=== PATIENT | male | born 1950 | race African-American/Black ===

== ENCOUNTER 2018-12-13 16:20 | Inpatient (IN) | payer BC ==
[~2018-12-13] VITALS: Ht 180.3 cm; Wt 94.8 kg
[2018-12-13] MEDS ORDERED: FAMOTIDINE 20 MG/2 ML VIAL IVP ONE (17:00)
[2018-12-13] MEDS ORDERED: ONDANSETRON PF 4 MG/2 ML VIAL. IV ONE (17:00)
[2018-12-13] MEDS ORDERED: IV NORMAL SALINE 1000ML BAG 1,000 ML IV ONE ×2 (17:00→20:30)
[2018-12-13 18:19] LABS: BASO # 0.1 x10^3/uL (0.0-0.2); BASO % 0 % (0-3); EOS % 0 % (0-3); HEMATOCRIT 42.2 % (39.0-53.0); HEMOGLOBIN 14.5 g/dL (13.0-17.5); LYMPH # 5.2 x10^3/uL (1.0-4.8); LYMPH % 30 % (24-48); MEAN CORPUSCULAR HEMOGLOBIN 30 pg (25-35); MEAN CORPUSCULAR HGB CONC 34 g/dL (31-37); MEAN CORPUSCULAR VOLUME 88 fL (79-100); MONO # 0.4 x10^3/uL (0.0-1.1); MONO % 2 % (0-9); NEUT # 11.4 x10^3/uL (1.8-7.7); NEUT % 67 % (31-73); PLATELET COUNT 152 x10^3/uL (140-400); RED BLOOD COUNT 4.81 x10^6/uL (4.30-5.70); RED CELL DISTRIBUTION WIDTH 13.9 % (11.5-14.5); WHITE BLOOD COUNT 17.1 x10^3/uL (4.0-11.0)
[2018-12-13 18:20] LABS: BILIRUBIN,URINE NEGATIVE (NEG); CLARITY,URINE CLEAR; COLOR,URINE AMBER; NITRITE,URINE NEGATIVE (NEG); PROTEIN,URINE NEGATIVE (NEG-TRACE)
[2018-12-13 18:26] LABS: PROTHROMBIN TIME PATIENT 14.8 SEC (11.7-14.0)
[2018-12-13 18:27] LABS: BARBITURATES NEG (NEG); BENZODIAZEPINES NEG (NEG); CANNABINOIDS POS (NEG); COCAINE NEG (NEG); METHADONE NEG (NEG); OPIATES NEG (NEG); PHENCYCLIDINE NEG (NEG)
[2018-12-13 18:28] LABS: SQUAMOUS EPITHELIAL CELL,UR OCC /LPF
[2018-12-13 18:29] LABS: BACTERIA,URINE FEW /HPF (0-FEW); WBC,URINE >40 /HPF (0-4)
[2018-12-13 18:31] LABS: CALCIUM 9.1 mg/dL (8.5-10.1); CREATININE 1.1 mg/dL (0.7-1.3); GFR 80.5; POTASSIUM 3.6 mmol/L (3.5-5.1)
[2018-12-13 18:36] LABS: ALBUMIN 3.7 g/dL (3.4-5.0); ALBUMIN/GLOBULIN RATIO 1.1 (1.0-1.7); MAGNESIUM 1.7 mg/dL (1.8-2.4); TOTAL BILIRUBIN 1.7 mg/dL (0.2-1.0)
[2018-12-13 18:38] LABS: AMPHETAMINE/METHAMPHETAMINE NEG (NEG)
[2018-12-13 18:47] LABS: CREATINE KINASE 73 U/L (39-308)
[2018-12-13] MEDS ORDERED: CONTRAST GIVEN. MC PRN (19:00)
[2018-12-13] MEDS ORDERED: IOHEXOL 300 MG/ML 100ML VIAL. IV ONE (19:00)
--- NOTE | 2018-12-13 19:37 | RAD ---
Exam: CT abdomen and pelvis with contrast INDICATION: Abdominal pain TECHNIQUE: Sequential axial images through the abdomen and pelvis obtained following the administration of 75 mL of Omni 300 IV contrast. Sagittal and coronal reformatted images were reconstructed from the axial data and reviewed. Comparisons: None FINDINGS: Heart size is normal. No pericardial effusion. Visualized lung bases are clear. No pleural effusion. Liver, spleen, pancreas and adrenals are unremarkable. Gallbladder is surgically absent. Kidneys demonstrate symmetric enhancement. No perinephric inflammation or hydronephrosis. No renal or ureteral calculi are identified. Bladder is partially distended not well evaluated. Prostate is mildly enlarged with a mildly heterogenous appearance. Diverticulosis is noted predominantly within the sigmoid colon without evidence of acute diverticulitis. Remainder of the large and small bowel are unremarkable. Appendix is normal. No free intra-abdominal air or fluid. Abdominal aorta has a normal course and caliber. Abdominal vasculature is patent. Mildly enlarged right external iliac lymph node is noted. It measures 1.4 cm in short axis. Numerous prominent and mildly enlarged retroperitoneal lymph nodes probably in the left periaortic region are noted. No suspicious osseous lesions or acute fractures. IMPRESSION: 1. Mild heterogenous appearance of the prostate which is mildly enlarged. This can be seen in setting prostatitis. Recommend correlation with PSA. 2. Several retroperitoneal and pelvic lymph nodes as described above which are nonspecific may be reactive to the above-mentioned process. Exposure: One or more of the following in the visualized dose reduction techniques were utilized for this examination: 1. Automated exposure control 2. Adjustment of the MA and/or KV according to patient size 3. Use of iterative of reconstructive technique Electronically signed by: Vianney Garrido MD (12/13/2018 7:34 PM) [facility]
[2018-12-13] MEDS ORDERED: CIPROFLOXACIN 400MG PREMIX 200 ML IV ONE (19:45)
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
[2018-12-13] MEDS ORDERED: MAGNESIUM SULFATE 1GM 100 ML IV ONE (20:15)
[2018-12-13] MEDS ORDERED: MORPHINE SULFATE 10 MG/ML VIAL. IV ONE (20:15)
[2018-12-13] MEDS ORDERED: ZOLPIDEM 5 MG TABLET. PO PRN (20:30)
[2018-12-13] MEDS ORDERED: ONDANSETRON PF 4 MG/2 ML VIAL. IV PRN (20:30)
[2018-12-13 21:10] VITALS: BP 90/52
--- NOTE | 2018-12-13 21:46 | PDOC1 ---
History and Physical Date of Admission Date of Admission DATE: 12/13/18 TIME: 21:40 Identification/Chief Complaint Chief Complaint lower abd pain, severe dysuria, dec stream Source Source: Caregiver, Chart review, Patient History of Present Illness History of Present Illness 68 male, hx of BPH sxs, not on any meds, has not seen MD in a while, fam hx Prostate CA father with mets to bone, HPI: acute onset today of the above CC, unable to drive, brought him in, UTI on UA with heterogenous prostate on imaging seen in prostatitis, Admitted for that, Wants PSA checked, more comfortable now. Admits to dec stream, dysuria, frequency and urgency, no allergies to abx Past Medical History Renal/: Benign prostatic enlarg. Past Surgical History Past Surgical History: No pertinent history Family History Family History: Cancer, Other (prostate ca- father) Social History Smoke: No ALCOHOL: none Drugs: None Current Problem List Problem List Problems Medical Problems: (1) Acute prostatitis Status: Acute Current Medications Current Medications Current Medications Famotidine (Pepcid Vial) 20 mg 1X ONCE IVP Last administered on 12/13/18at 17:32; Start 12/13/18 at 17:00; Stop 12/13/18 at 17:28; Status DC Ondansetron HCl (Zofran) 4 mg 1X ONCE IV Last administered on 12/13/18at 17:32; Start 12/13/18 at 17:00; Stop 12/13/18 at 17:28; Status DC Sodium Chloride 1,000 ml @ 1,000 mls/hr 1X ONCE IV Last administered on 12/13/18at 17:32; Start 12/13/18 at 17:00; Stop 12/13/18 at 17:59; Status DC Iohexol (Omnipaque 300 Mg/ml) 75 ml 1X ONCE IV Last administered on 12/13/18at 19:05; Start 12/13/18 at 19:00; Stop 12/13/18 at 19:01; Status DC Info (CONTRAST GIVEN -- Rx MONITORING) 1 each PRN DAILY PRN MC SEE COMMENTS; Start 12/13/18 at 19:00; Stop 12/15/18 at 18:59 Ciprofloxacin/ Dextrose 200 ml @ 200 mls/hr 1X ONCE IV Last administered on 12/13/18at 20:02; Start 12/13/18 at 19:45; Stop 12/13/18 at 20:44; Status DC Morphine Sulfate (Morphine Sulfate) 5 mg 1X ONCE IV Last administered on 12/13/18at 20:16; Start 12/13/18 at 20:15; Stop 12/13/18 at 20:16; Status DC Ciprofloxacin/ Dextrose 200 ml @ 200 mls/hr Q12HR IV ; Start 12/14/18 at 09:00 Magnesium Sulfate/ Dextrose 100 ml @ 100 mls/hr 1X ONCE IV ; Start 12/13/18 at 20:15; Stop 12/13/18 at 21:14; Status DC Sodium Chloride 1,000 ml @ 100 mls/hr Q10H IV ; Start 12/13/18 at 20:15 Zolpidem Tartrate (Ambien) 5 mg PRN QHS PRN PO INSOMNIA; Start 12/13/18 at 20:30 Ondansetron HCl (Zofran) 4 mg PRN Q8HRS PRN IV NAUSEA/VOMITING; Start 12/13/18 at 20:30; Stop 12/14/18 at 20:29 Morphine Sulfate (Morphine Sulfate) 4 mg PRN Q2HR PRN IV PAIN; Start 12/13/18 at 20:30; Stop 12/14/18 at 20:29 Acetaminophen (Tylenol) 650 mg PRN Q4HRS PRN PO FEVER; Start 12/13/18 at 20:30; Stop 12/14/18 at 20:29 Sodium Chloride 1,000 ml @ 125 mls/hr 1X ONCE IV ; Start 12/13/18 at 20:30; Stop 12/14/18 at 04:29 Allergies Allergies: Coded Allergies: No Known Drug Allergies (Unverified , 12/13/18) ROS Review of System as per hpi, had emesis, severe abd pain, no fevers Physical Exam General: No acute distress HEENT: PERRLA Lungs: Clear to auscultation, Normal air movement Heart: S1S2, RRR, no thrills, no rubs, no gallops, no murmurs Cardiovascular: S1, S2 Abdomen: Normal bowel sounds, Soft, No tenderness, No hepatosplenomegaly, No masses Male Genitals Exam: normal genitalia, normal prostate Rectal Exam: not examined Extremities: No clubbing, No cyanosis, No edema, Normal pulses, No tenderness/swelling Skin: No rashes, No breakdown, No significant lesion Neuro: Normal gait, Normal speech, Strength at 5/5 X4 ext, Normal tone, Sensation intact, Cranial nerves 3-12 NL, Reflexes 2+ Psych/Mental Status: Mental status NL, Mood NL Vitals Vitals Vital Signs Date Time Temp Pulse Resp B/P (MAP) Pulse Ox O2 Delivery O2 Flow Rate FiO2 12/13/18 20:53 19 94 Room Air 12/13/18 20:41 82 154/63 (93) 12/13/18 16:45 99.4 99.4 Labs Labs Laboratory Tests Test 12/13/18 17:20 White Blood Count 17.1 x10^3/uL (4.0-11.0) Red Blood Count 4.81 x10^6/uL (4.30-5.70) Hemoglobin 14.5 g/dL (13.0-17.5) Hematocrit 42.2 % (39.0-53.0) Mean Corpuscular Volume 88 fL (79-100) Mean Corpuscular Hemoglobin 30 pg (25-35) Mean Corpuscular Hemoglobin Concent 34 g/dL (31-37) Red Cell Distribution Width 13.9 % (11.5-14.5) Platelet Count 152 x10^3/uL (140-400) Neutrophils (%) (Auto) 67 % (31-73) Lymphocytes (%) (Auto) 30 % (24-48) Monocytes (%) (Auto) 2 % (0-9) Eosinophils (%) (Auto) 0 % (0-3) Basophils (%) (Auto) 0 % (0-3) Neutrophils # (Auto) 11.4 x10^3/uL (1.8-7.7) Lymphocytes # (Auto) 5.2 x10^3/uL (1.0-4.8) Monocytes # (Auto) 0.4 x10^3/uL (0.0-1.1) Eosinophils # (Auto) 0.0 x10^3/uL (0.0-0.7) Basophils # (Auto) 0.1 x10^3/uL (0.0-0.2) Prothrombin Time 14.8 SEC (11.7-14.0) Prothromb Time International Ratio 1.2 (0.8-1.1) Urine Collection Type Unknown Urine Color [place] Urine Clarity Clear Urine pH 8.0 Urine Specific [place] 1.020 Urine Protein Negative mg/dL (NEG-TRACE) Urine Glucose (UA) Negative mg/dL (NEG) Urine Ketones (Stick) Trace mg/dL (NEG) Urine Blood Small (NEG) Urine Nitrite Negative (NEG) Urine Bilirubin Negative (NEG) Urine Urobilinogen Dipstick 1.0 mg/dL (0.2 mg/dL) Urine Leukocyte Esterase Large (NEG) Urine RBC 3-5 /HPF (0-2) Urine WBC >40 /HPF (0-4) Urine Squamous Epithelial Cells Occ /LPF Urine Bacteria Few /HPF (0-FEW) Urine Mucus Mod /LPF Sodium Level 139 mmol/L (136-145) Potassium Level 3.6 mmol/L (3.5-5.1) Chloride Level 105 mmol/L (98-107) Carbon Dioxide Level 24 mmol/L (21-32) Anion Gap 10 (6-14) Blood Urea Nitrogen 13 mg/dL (8-26) Creatinine 1.1 mg/dL (0.7-1.3) Estimated GFR (Cockcroft-Gault) 80.5 BUN/Creatinine Ratio 12 (6-20) Glucose Level 107 mg/dL (70-99) Calcium Level 9.1 mg/dL (8.5-10.1) Magnesium Level 1.7 mg/dL (1.8-2.4) Total Bilirubin 1.7 mg/dL (0.2-1.0) Aspartate Amino Transf (AST/SGOT) 13 U/L (15-37) Alanine Aminotransferase (ALT/SGPT) 25 U/L (16-63) Alkaline Phosphatase 79 U/L (46-116) Creatine Kinase 73 U/L (39-308) Creatine Kinase MB (Mass) < 0.5 ng/mL (0.0-3.6) Creatine Kinase MB Relative Index % (0-4) Troponin I Quantitative < 0.017 ng/mL (0.000-0.055) FL-Jbu-[id number]-Type Natriuretic Peptide 485 pg/mL (0-124) Total Protein 7.0 g/dL (6.4-8.2) Albumin 3.7 g/dL (3.4-5.0) Albumin/Globulin Ratio 1.1 (1.0-1.7) Lipase 57 U/L (73-393) Thyroid Stimulating Hormone (TSH) 0.172 uIU/mL (0.358-3.74) Urine Opiates Screen Neg (NEG) Urine Methadone Screen Neg (NEG) Urine Barbiturates Neg (NEG) Urine Phencyclidine Screen Neg (NEG) Urine Amphetamine/Methamphetamine Neg (NEG) Urine Benzodiazepines Screen Neg (NEG) Urine Cocaine Screen Neg (NEG) Urine Cannabinoids Screen Pos (NEG) Urine Ethyl Alcohol Neg (NEG) Laboratory Tests Test 12/13/18 17:20 White Blood Count 17.1 x10^3/uL (4.0-11.0) Red Blood Count 4.81 x10^6/uL (4.30-5.70) Hemoglobin 14.5 g/dL (13.0-17.5) Hematocrit 42.2 % (39.0-53.0) Mean Corpuscular Volume 88 fL (79-100) Mean Corpuscular Hemoglobin 30 pg (25-35) Mean Corpuscular Hemoglobin Concent 34 g/dL (31-37) Red Cell Distribution Width 13.9 % (11.5-14.5) Platelet Count 152 x10^3/uL (140-400) Neutrophils (%) (Auto) 67 % (31-73) Lymphocytes (%) (Auto) 30 % (24-48) Monocytes (%) (Auto) 2 % (0-9) Eosinophils (%) (Auto) 0 % (0-3) Basophils (%) (Auto) 0 % (0-3) Neutrophils # (Auto) 11.4 x10^3/uL (1.8-7.7) Lymphocytes # (Auto) 5.2 x10^3/uL (1.0-4.8) Monocytes # (Auto) 0.4 x10^3/uL (0.0-1.1) Eosinophils # (Auto) 0.0 x10^3/uL (0.0-0.7) Basophils # (Auto) 0.1 x10^3/uL (0.0-0.2) Prothrombin Time 14.8 SEC (11.7-14.0) Prothromb Time International Ratio 1.2 (0.8-1.1) Urine Collection Type Unknown Urine Color [place] Urine Clarity Clear Urine pH 8.0 Urine Specific [place] 1.020 Urine Protein Negative mg/dL (NEG-TRACE) Urine Glucose (UA) Negative mg/dL (NEG) Urine Ketones (Stick) Trace mg/dL (NEG) Urine Blood Small (NEG) Urine Nitrite Negative (NEG) Urine Bilirubin Negative (NEG) Urine Urobilinogen Dipstick 1.0 mg/dL (0.2 mg/dL) Urine Leukocyte Esterase Large (NEG) Urine RBC 3-5 /HPF (0-2) Urine WBC >40 /HPF (0-4) Urine Squamous Epithelial Cells Occ /LPF Urine Bacteria Few /HPF (0-FEW) Urine Mucus Mod /LPF Sodium Level 139 mmol/L (136-145) Potassium Level 3.6 mmol/L (3.5-5.1) Chloride Level 105 mmol/L (98-107) Carbon Dioxide Level 24 mmol/L (21-32) Anion Gap 10 (6-14) Blood Urea Nitrogen 13 mg/dL (8-26) Creatinine 1.1 mg/dL (0.7-1.3) Estimated GFR (Cockcroft-Gault) 80.5 BUN/Creatinine Ratio 12 (6-20) Glucose Level 107 mg/dL (70-99) Calcium Level 9.1 mg/dL (8.5-10.1) Magnesium Level 1.7 mg/dL (1.8-2.4) Total Bilirubin 1.7 mg/dL (0.2-1.0) Aspartate Amino Transf (AST/SGOT) 13 U/L (15-37) Alanine Aminotransferase (ALT/SGPT) 25 U/L (16-63) Alkaline Phosphatase 79 U/L (46-116) Creatine Kinase 73 U/L (39-308) Creatine Kinase MB (Mass) < 0.5 ng/mL (0.0-3.6) Creatine Kinase MB Relative Index % (0-4) Troponin I Quantitative < 0.017 ng/mL (0.000-0.055) WS-Jtc-[id number]-Type Natriuretic Peptide 485 pg/mL (0-124) Total Protein 7.0 g/dL (6.4-8.2) Albumin 3.7 g/dL (3.4-5.0) Albumin/Globulin Ratio 1.1 (1.0-1.7) Lipase 57 U/L (73-393) Thyroid Stimulating Hormone (TSH) 0.172 uIU/mL (0.358-3.74) Urine Opiates Screen Neg (NEG) Urine Methadone Screen Neg (NEG) Urine Barbiturates Neg (NEG) Urine Phencyclidine Screen Neg (NEG) Urine Amphetamine/Methamphetamine Neg (NEG) Urine Benzodiazepines Screen Neg (NEG) Urine Cocaine Screen Neg (NEG) Urine Cannabinoids Screen Pos (NEG) Urine Ethyl Alcohol Neg (NEG) VTE Prophylaxis Ordered VTE Prophylaxis Devices: Yes VTE Pharmacological Prophylaxi: Yes Assessment/Plan Assessment/Plan prostatitis UTI BPH, symptomatic FAm hx prostate CA with mets to bone - father Hypomagnesemia LEukocytosis PLAN: 2 mN, med surg floor CIpro IV Urology FLomax IVF for sIRS Full code ok to eat NO home meds to reconcile I did check for psa - though unsure how reliable that will be with active prostatitis Replace mag and recheck tmr Montior leukocytosis, SEEn in room, dw KEMAL DAVIS Y Dec 13, 2018 21:46
[2018-12-13 23:00] VITALS: BP 103/47
[2018-12-13] MEDS: TAMSULOSIN 0.4 MG CAP.ER.24H. PO SCH (23:30)
[2018-12-13] MEDS: ACETAMINOPHEN 325 MG TABLET. PO PRN (23:30)
[2018-12-13] MEDS: IV NORMAL SALINE 1000ML BAG 1,000 ML IV SCH (23:39)
[2018-12-13] MEDS: MORPHINE SULFATE 4 MG/ML VIAL. IV PRN (23:39)
[2018-12-14 03:00] VITALS: BP 99/54
[2018-12-14 03:47] LABS: BASO # 0.1 x10^3/uL (0.0-0.2); BASO % 0 % (0-3); EOS % 0 % (0-3); HEMATOCRIT 39.8 % (39.0-53.0); HEMOGLOBIN 13.6 g/dL (13.0-17.5); LYMPH # 4.6 x10^3/uL (1.0-4.8); LYMPH % 24 % (24-48); MEAN CORPUSCULAR HEMOGLOBIN 30 pg (25-35); MEAN CORPUSCULAR HGB CONC 34 g/dL (31-37); MEAN CORPUSCULAR VOLUME 88 fL (79-100); MONO # 0.5 x10^3/uL (0.0-1.1); MONO % 3 % (0-9); NEUT % 73 % (31-73); PLATELET COUNT 126 x10^3/uL (140-400); RED BLOOD COUNT 4.53 x10^6/uL (4.30-5.70); RED CELL DISTRIBUTION WIDTH 13.9 % (11.5-14.5); WHITE BLOOD COUNT 19.2 x10^3/uL (4.0-11.0)
[2018-12-14 04:07] LABS: CALCIUM 8.3 mg/dL (8.5-10.1); CREATININE 1.3 mg/dL (0.7-1.3); GFR 66.4; MAGNESIUM 1.9 mg/dL (1.8-2.4); POTASSIUM 3.7 mmol/L (3.5-5.1)
[2018-12-14] MEDS: MORPHINE SULFATE 4 MG/ML VIAL. IV PRN ×2 (05:08→08:12)
[2018-12-14] MEDS ORDERED: IV NORMAL SALINE 1000ML BAG 1,000 ML IV ONE (06:00)
[2018-12-14] MEDS: IV NORMAL SALINE 1000ML BAG 1,000 ML IV SCH ×3 (06:10→18:06)
--- NOTE | 2018-12-14 06:11 | NUR ---
Pt triggered a Positive Sepsis on admission assessment with elevated temp, WBCs in blood, abx use and WBC in urine. Contacted CHILD CARE ASSISTANT, ordered STAT Lactic and Blood Cultures. Contacted DR with Lactic results of 1.1. Recieved orders to administer 1 liter bolus of NS. Non-administered 0615 bag of scheduled NS till the bolus is complete. Will Continue to monitor.
[2018-12-14 07:00] VITALS: BP 102/40
[2018-12-14] MEDS: ACETAMINOPHEN 325 MG TABLET. PO PRN (08:04)
[2018-12-14] MEDS ORDERED: CIPROFLOXACIN 400MG PREMIX 200 ML IV SCH (09:00)
[2018-12-14] MEDS ORDERED: PIP/TAZO PER PHARMACY MC PRN (09:45)
--- NOTE | 2018-12-14 09:59 | PDOC ---
PROGRESS NOTES Chief Complaint Chief Complaint sepsis prostatitis UTI BPH, symptomatic Hypomagnesemia nausea and vomiting History of Present Illness History of Present Illness Dc cipro, change to zosyn Urology consult flomax NO home meds to reconcile Vitals Vitals Vital Signs Date Time Temp Pulse Resp B/P (MAP) Pulse Ox O2 Delivery O2 Flow Rate FiO2 12/14/18 08:15 Room Air 12/14/18 07:00 101.5 83 20 102/40 (60) 95 101.5 Physical Exam General: Alert, Oriented X3, Cooperative, mild distress Heart: Regular rate, No murmurs Lungs: Clear Abdomen: Normal bowel sounds, Soft, No tenderness, No hepatosplenomegaly, No masses Extremities: No clubbing, No cyanosis, No edema, Normal pulses, No tenderness/swelling Skin: No rashes, No breakdown, No significant lesion Labs LABS Laboratory Tests Test 12/13/18 17:20 12/14/18 03:30 White Blood Count 17.1 x10^3/uL (4.0-11.0) 19.2 x10^3/uL (4.0-11.0) Red Blood Count 4.81 x10^6/uL (4.30-5.70) 4.53 x10^6/uL (4.30-5.70) Hemoglobin 14.5 g/dL (13.0-17.5) 13.6 g/dL (13.0-17.5) Hematocrit 42.2 % (39.0-53.0) 39.8 % (39.0-53.0) Mean Corpuscular Volume 88 fL (79-100) 88 fL (79-100) Mean Corpuscular Hemoglobin 30 pg (25-35) 30 pg (25-35) Mean Corpuscular Hemoglobin Concent 34 g/dL (31-37) 34 g/dL (31-37) Red Cell Distribution Width 13.9 % (11.5-14.5) 13.9 % (11.5-14.5) Platelet Count 152 x10^3/uL (140-400) 126 x10^3/uL (140-400) Neutrophils (%) (Auto) 67 % (31-73) 73 % (31-73) Lymphocytes (%) (Auto) 30 % (24-48) 24 % (24-48) Monocytes (%) (Auto) 2 % (0-9) 3 % (0-9) Eosinophils (%) (Auto) 0 % (0-3) 0 % (0-3) Basophils (%) (Auto) 0 % (0-3) 0 % (0-3) Neutrophils # (Auto) 11.4 x10^3/uL (1.8-7.7) 14.0 x10^3/uL (1.8-7.7) Lymphocytes # (Auto) 5.2 x10^3/uL (1.0-4.8) 4.6 x10^3/uL (1.0-4.8) Monocytes # (Auto) 0.4 x10^3/uL (0.0-1.1) 0.5 x10^3/uL (0.0-1.1) Eosinophils # (Auto) 0.0 x10^3/uL (0.0-0.7) 0.0 x10^3/uL (0.0-0.7) Basophils # (Auto) 0.1 x10^3/uL (0.0-0.2) 0.1 x10^3/uL (0.0-0.2) Prothrombin Time 14.8 SEC (11.7-14.0) Prothromb Time International Ratio 1.2 (0.8-1.1) Urine Collection Type Unknown Urine Color [place] Urine Clarity Clear Urine pH 8.0 Urine Specific [place] 1.020 Urine Protein Negative mg/dL (NEG-TRACE) Urine Glucose (UA) Negative mg/dL (NEG) Urine Ketones (Stick) Trace mg/dL (NEG) Urine Blood Small (NEG) Urine Nitrite Negative (NEG) Urine Bilirubin Negative (NEG) Urine Urobilinogen Dipstick 1.0 mg/dL (0.2 mg/dL) Urine Leukocyte Esterase Large (NEG) Urine RBC 3-5 /HPF (0-2) Urine WBC >40 /HPF (0-4) Urine Squamous Epithelial Cells Occ /LPF Urine Bacteria Few /HPF (0-FEW) Urine Mucus Mod /LPF Sodium Level 139 mmol/L (136-145) 138 mmol/L (136-145) Potassium Level 3.6 mmol/L (3.5-5.1) 3.7 mmol/L (3.5-5.1) Chloride Level 105 mmol/L (98-107) 105 mmol/L (98-107) Carbon Dioxide Level 24 mmol/L (21-32) 24 mmol/L (21-32) Anion Gap 10 (6-14) 9 (6-14) Blood Urea Nitrogen 13 mg/dL (8-26) 16 mg/dL (8-26) Creatinine 1.1 mg/dL (0.7-1.3) 1.3 mg/dL (0.7-1.3) Estimated GFR (Cockcroft-Gault) 80.5 66.4 BUN/Creatinine Ratio 12 (6-20) Glucose Level 107 mg/dL (70-99) 150 mg/dL (70-99) Calcium Level 9.1 mg/dL (8.5-10.1) 8.3 mg/dL (8.5-10.1) Magnesium Level 1.7 mg/dL (1.8-2.4) 1.9 mg/dL (1.8-2.4) Total Bilirubin 1.7 mg/dL (0.2-1.0) Aspartate Amino Transf (AST/SGOT) 13 U/L (15-37) Alanine Aminotransferase (ALT/SGPT) 25 U/L (16-63) Alkaline Phosphatase 79 U/L (46-116) Creatine Kinase 73 U/L (39-308) Creatine Kinase MB (Mass) < 0.5 ng/mL (0.0-3.6) Creatine Kinase MB Relative Index % (0-4) Troponin I Quantitative < 0.017 ng/mL (0.000-0.055) HO-Ooa-M-Type Natriuretic Peptide 485 pg/mL (0-124) Total Protein 7.0 g/dL (6.4-8.2) Albumin 3.7 g/dL (3.4-5.0) Albumin/Globulin Ratio 1.1 (1.0-1.7) Lipase 57 U/L (73-393) Prostate Specific Antigen 7.01 ng/mL (0.00-4.00) Thyroid Stimulating Hormone (TSH) 0.172 uIU/mL (0.358-3.74) Urine Opiates Screen Neg (NEG) Urine Methadone Screen Neg (NEG) Urine Barbiturates Neg (NEG) Urine Phencyclidine Screen Neg (NEG) Urine Amphetamine/Methamphetamine Neg (NEG) Urine Benzodiazepines Screen Neg (NEG) Urine Cocaine Screen Neg (NEG) Urine Cannabinoids Screen Pos (NEG) Urine Ethyl Alcohol Neg (NEG) Lactic Acid Level 1.1 mmol/L (0.4-2.0) Assessment and Plan Assessmemt and Plan Problems Medical Problems: (1) Acute prostatitis Status: Acute Comment Review of Relevant I have reviewed the following items dionisio (where applicable) has been applied. Labs Laboratory Tests Test 12/13/18 17:20 12/14/18 03:30 White Blood Count 17.1 x10^3/uL (4.0-11.0) 19.2 x10^3/uL (4.0-11.0) Red Blood Count 4.81 x10^6/uL (4.30-5.70) 4.53 x10^6/uL (4.30-5.70) Hemoglobin 14.5 g/dL (13.0-17.5) 13.6 g/dL (13.0-17.5) Hematocrit 42.2 % (39.0-53.0) 39.8 % (39.0-53.0) Mean Corpuscular Volume 88 fL (79-100) 88 fL (79-100) Mean Corpuscular Hemoglobin 30 pg (25-35) 30 pg (25-35) Mean Corpuscular Hemoglobin Concent 34 g/dL (31-37) 34 g/dL (31-37) Red Cell Distribution Width 13.9 % (11.5-14.5) 13.9 % (11.5-14.5) Platelet Count 152 x10^3/uL (140-400) 126 x10^3/uL (140-400) Neutrophils (%) (Auto) 67 % (31-73) 73 % (31-73) Lymphocytes (%) (Auto) 30 % (24-48) 24 % (24-48) Monocytes (%) (Auto) 2 % (0-9) 3 % (0-9) Eosinophils (%) (Auto) 0 % (0-3) 0 % (0-3) Basophils (%) (Auto) 0 % (0-3) 0 % (0-3) Neutrophils # (Auto) 11.4 x10^3/uL (1.8-7.7) 14.0 x10^3/uL (1.8-7.7) Lymphocytes # (Auto) 5.2 x10^3/uL (1.0-4.8) 4.6 x10^3/uL (1.0-4.8) Monocytes # (Auto) 0.4 x10^3/uL (0.0-1.1) 0.5 x10^3/uL (0.0-1.1) Eosinophils # (Auto) 0.0 x10^3/uL (0.0-0.7) 0.0 x10^3/uL (0.0-0.7) Basophils # (Auto) 0.1 x10^3/uL (0.0-0.2) 0.1 x10^3/uL (0.0-0.2) Prothrombin Time 14.8 SEC (11.7-14.0) Prothromb Time International Ratio 1.2 (0.8-1.1) Urine Collection Type Unknown Urine Color [place] Urine Clarity Clear Urine pH 8.0 Urine Specific [place] 1.020 Urine Protein Negative mg/dL (NEG-TRACE) Urine Glucose (UA) Negative mg/dL (NEG) Urine Ketones (Stick) Trace mg/dL (NEG) Urine Blood Small (NEG) Urine Nitrite Negative (NEG) Urine Bilirubin Negative (NEG) Urine Urobilinogen Dipstick 1.0 mg/dL (0.2 mg/dL) Urine Leukocyte Esterase Large (NEG) Urine RBC 3-5 /HPF (0-2) Urine WBC >40 /HPF (0-4) Urine Squamous Epithelial Cells Occ /LPF Urine Bacteria Few /HPF (0-FEW) Urine Mucus Mod /LPF Sodium Level 139 mmol/L (136-145) 138 mmol/L (136-145) Potassium Level 3.6 mmol/L (3.5-5.1) 3.7 mmol/L (3.5-5.1) Chloride Level 105 mmol/L (98-107) 105 mmol/L (98-107) Carbon Dioxide Level 24 mmol/L (21-32) 24 mmol/L (21-32) Anion Gap 10 (6-14) 9 (6-14) Blood Urea Nitrogen 13 mg/dL (8-26) 16 mg/dL (8-26) Creatinine 1.1 mg/dL (0.7-1.3) 1.3 mg/dL (0.7-1.3) Estimated GFR (Cockcroft-Gault) 80.5 66.4 BUN/Creatinine Ratio 12 (6-20) Glucose Level 107 mg/dL (70-99) 150 mg/dL (70-99) Calcium Level 9.1 mg/dL (8.5-10.1) 8.3 mg/dL (8.5-10.1) Magnesium Level 1.7 mg/dL (1.8-2.4) 1.9 mg/dL (1.8-2.4) Total Bilirubin 1.7 mg/dL (0.2-1.0) Aspartate Amino Transf (AST/SGOT) 13 U/L (15-37) Alanine Aminotransferase (ALT/SGPT) 25 U/L (16-63) Alkaline Phosphatase 79 U/L (46-116) Creatine Kinase 73 U/L (39-308) Creatine Kinase MB (Mass) < 0.5 ng/mL (0.0-3.6) Creatine Kinase MB Relative Index % (0-4) Troponin I Quantitative < 0.017 ng/mL (0.000-0.055) IZ-Cyg-A-Type Natriuretic Peptide 485 pg/mL (0-124) Total Protein 7.0 g/dL (6.4-8.2) Albumin 3.7 g/dL (3.4-5.0) Albumin/Globulin Ratio 1.1 (1.0-1.7) Lipase 57 U/L (73-393) Prostate Specific Antigen 7.01 ng/mL (0.00-4.00) Thyroid Stimulating Hormone (TSH) 0.172 uIU/mL (0.358-3.74) Urine Opiates Screen Neg (NEG) Urine Methadone Screen Neg (NEG) Urine Barbiturates Neg (NEG) Urine Phencyclidine Screen Neg (NEG) Urine Amphetamine/Methamphetamine Neg (NEG) Urine Benzodiazepines Screen Neg (NEG) Urine Cocaine Screen Neg (NEG) Urine Cannabinoids Screen Pos (NEG) Urine Ethyl Alcohol Neg (NEG) Lactic Acid Level 1.1 mmol/L (0.4-2.0) Laboratory Tests Test 12/13/18 17:20 12/14/18 03:30 White Blood Count 17.1 x10^3/uL (4.0-11.0) 19.2 x10^3/uL (4.0-11.0) Red Blood Count 4.81 x10^6/uL (4.30-5.70) 4.53 x10^6/uL (4.30-5.70) Hemoglobin 14.5 g/dL (13.0-17.5) 13.6 g/dL (13.0-17.5) Hematocrit 42.2 % (39.0-53.0) 39.8 % (39.0-53.0) Mean Corpuscular Volume 88 fL (79-100) 88 fL (79-100) Mean Corpuscular Hemoglobin 30 pg (25-35) 30 pg (25-35) Mean Corpuscular Hemoglobin Concent 34 g/dL (31-37) 34 g/dL (31-37) Red Cell Distribution Width 13.9 % (11.5-14.5) 13.9 % (11.5-14.5) Platelet Count 152 x10^3/uL (140-400) 126 x10^3/uL (140-400) Neutrophils (%) (Auto) 67 % (31-73) 73 % (31-73) Lymphocytes (%) (Auto) 30 % (24-48) 24 % (24-48) Monocytes (%) (Auto) 2 % (0-9) 3 % (0-9) Eosinophils (%) (Auto) 0 % (0-3) 0 % (0-3) Basophils (%) (Auto) 0 % (0-3) 0 % (0-3) Neutrophils # (Auto) 11.4 x10^3/uL (1.8-7.7) 14.0 x10^3/uL (1.8-7.7) Lymphocytes # (Auto) 5.2 x10^3/uL (1.0-4.8) 4.6 x10^3/uL (1.0-4.8) Monocytes # (Auto) 0.4 x10^3/uL (0.0-1.1) 0.5 x10^3/uL (0.0-1.1) Eosinophils # (Auto) 0.0 x10^3/uL (0.0-0.7) 0.0 x10^3/uL (0.0-0.7) Basophils # (Auto) 0.1 x10^3/uL (0.0-0.2) 0.1 x10^3/uL (0.0-0.2) Prothrombin Time 14.8 SEC (11.7-14.0) Prothromb Time International Ratio 1.2 (0.8-1.1) Urine Collection Type Unknown Urine Color [place] Urine Clarity Clear Urine pH 8.0 Urine Specific [place] 1.020 Urine Protein Negative mg/dL (NEG-TRACE) Urine Glucose (UA) Negative mg/dL (NEG) Urine Ketones (Stick) Trace mg/dL (NEG) Urine Blood Small (NEG) Urine Nitrite Negative (NEG) Urine Bilirubin Negative (NEG) Urine Urobilinogen Dipstick 1.0 mg/dL (0.2 mg/dL) Urine Leukocyte Esterase Large (NEG) Urine RBC 3-5 /HPF (0-2) Urine WBC >40 /HPF (0-4) Urine Squamous Epithelial Cells Occ /LPF Urine Bacteria Few /HPF (0-FEW) Urine Mucus Mod /LPF Sodium Level 139 mmol/L (136-145) 138 mmol/L (136-145) Potassium Level 3.6 mmol/L (3.5-5.1) 3.7 mmol/L (3.5-5.1) Chloride Level 105 mmol/L (98-107) 105 mmol/L (98-107) Carbon Dioxide Level 24 mmol/L (21-32) 24 mmol/L (21-32) Anion Gap 10 (6-14) 9 (6-14) Blood Urea Nitrogen 13 mg/dL (8-26) 16 mg/dL (8-26) Creatinine 1.1 mg/dL (0.7-1.3) 1.3 mg/dL (0.7-1.3) Estimated GFR (Cockcroft-Gault) 80.5 66.4 BUN/Creatinine Ratio 12 (6-20) Glucose Level 107 mg/dL (70-99) 150 mg/dL (70-99) Calcium Level 9.1 mg/dL (8.5-10.1) 8.3 mg/dL (8.5-10.1) Magnesium Level 1.7 mg/dL (1.8-2.4) 1.9 mg/dL (1.8-2.4) Total Bilirubin 1.7 mg/dL (0.2-1.0) Aspartate Amino Transf (AST/SGOT) 13 U/L (15-37) Alanine Aminotransferase (ALT/SGPT) 25 U/L (16-63) Alkaline Phosphatase 79 U/L (46-116) Creatine Kinase 73 U/L (39-308) Creatine Kinase MB (Mass) < 0.5 ng/mL (0.0-3.6) Creatine Kinase MB Relative Index % (0-4) Troponin I Quantitative < 0.017 ng/mL (0.000-0.055) XK-Zqe-E-Type Natriuretic Peptide 485 pg/mL (0-124) Total Protein 7.0 g/dL (6.4-8.2) Albumin 3.7 g/dL (3.4-5.0) Albumin/Globulin Ratio 1.1 (1.0-1.7) Lipase 57 U/L (73-393) Prostate Specific Antigen 7.01 ng/mL (0.00-4.00) Thyroid Stimulating Hormone (TSH) 0.172 uIU/mL (0.358-3.74) Urine Opiates Screen Neg (NEG) Urine Methadone Screen Neg (NEG) Urine Barbiturates Neg (NEG) Urine Phencyclidine Screen Neg (NEG) Urine Amphetamine/Methamphetamine Neg (NEG) Urine Benzodiazepines Screen Neg (NEG) Urine Cocaine Screen Neg (NEG) Urine Cannabinoids Screen Pos (NEG) Urine Ethyl Alcohol Neg (NEG) Lactic Acid Level 1.1 mmol/L (0.4-2.0) Medications Current Medications Famotidine (Pepcid Vial) 20 mg 1X ONCE IVP Last administered on 12/13/18at 17:32; Start 12/13/18 at 17:00; Stop 12/13/18 at 17:28; Status DC Ondansetron HCl (Zofran) 4 mg 1X ONCE IV Last administered on 12/13/18at 17:32; Start 12/13/18 at 17:00; Stop 12/13/18 at 17:28; Status DC Sodium Chloride 1,000 ml @ 1,000 mls/hr 1X ONCE IV Last administered on 12/13/18at 17:32; Start 12/13/18 at 17:00; Stop 12/13/18 at 17:59; Status DC Iohexol (Omnipaque 300 Mg/ml) 75 ml 1X ONCE IV Last administered on 12/13/18 19:05; Start 12/13/18 at 19:00; Stop 12/13/18 at 19:01; Status DC Info (CONTRAST GIVEN -- Rx MONITORING) 1 each PRN DAILY PRN MC SEE COMMENTS; Start 12/13/18 at 19:00; Stop 12/15/18 at 18:59 Ciprofloxacin/ Dextrose 200 ml @ 200 mls/hr 1X ONCE IV Last administered on 12/13/18 20:02; Start 12/13/18 at 19:45; Stop 12/13/18 at 20:44; Status DC Morphine Sulfate (Morphine Sulfate) 5 mg 1X ONCE IV Last administered on 12/13/18 20:16; Start 12/13/18 at 20:15; Stop 12/13/18 at 20:16; Status DC Ciprofloxacin/ Dextrose 200 ml @ 200 mls/hr Q12HR IV Last administered on 12/14/18 08:05; Start 12/14/18 at 09:00; Stop 12/14/18 at 09:32; Status DC Magnesium Sulfate/ Dextrose 100 ml @ 100 mls/hr 1X ONCE IV Last administered on 12/13/18at 23:40; Start 12/13/18 at 20:15; Stop 12/13/18 at 21:14; Status DC Sodium Chloride 1,000 ml @ 100 mls/hr Q10H IV Last administered on 12/14/18at 07:11; Start 12/13/18 at 20:15 Zolpidem Tartrate (Ambien) 5 mg PRN QHS PRN PO INSOMNIA; Start 12/13/18 at 20:30 Ondansetron HCl (Zofran) 4 mg PRN Q8HRS PRN IV NAUSEA/VOMITING Last administered on 12/14/18at 09:43; Start 12/13/18 at 20:30; Stop 12/14/18 at 20:29 Morphine Sulfate (Morphine Sulfate) 4 mg PRN Q2HR PRN IV PAIN Last administered on 12/14/18 08:15; Start 12/13/18 at 20:30; Stop 12/14/18 at 20:29 Acetaminophen (Tylenol) 650 mg PRN Q4HRS PRN PO FEVER Last administered on 8/17/19at 08:05; Start 12/13/18 at 20:30; Stop 12/14/18 at 20:29 Sodium Chloride 1,000 ml @ 125 mls/hr 1X ONCE IV ; Start 12/13/18 at 20:30; Stop 12/14/18 at 04:29; Status DC Tamsulosin HCl (Flomax) 0.4 mg QHS PO Last administered on 12/13/18at 23:40; Start 12/13/18 at 22:00 Sodium Chloride 1,000 ml @ 0 mls/hr 1X ONCE IV Last administered on 12/14/18at 05:48; Start 12/14/18 at 06:00; Stop 12/14/18 at 07:00; Status DC Piperacillin Sod/ Tazobactam Sod (Zosyn Per Pharmacy) 1 each PRN DAILY PRN MC SEE COMMENTS; Start 12/14/18 at 09:45 Piperacillin Sod/ Tazobactam Sod 3.375 gm/Sodium Chloride 50 ml @ 100 mls/hr Q6HRS IV ; Start 12/14/18 at 12:00 Lactobacillus Rhamnosus (Culturelle) 1 cap BID PO ; Start 12/14/18 at 21:00 Vitals/I & O Vital Sign - Last 24 Hours 12/13/18 12/13/18 12/13/18 12/13/18 16:45 17:18 17:48 18:18 Temp 99.4 99.4 Pulse 72 78 82 78 Resp 16 B/P (MAP) 114/56 (75) 142/63 (89) 143/69 (93) 132/73 (92) Pulse Ox 97 97 91 96 O2 Delivery Room Air Room Air Room Air Room Air 12/13/18 12/13/18 12/13/18 12/13/18 18:48 20:11 20:16 20:41 Pulse 80 78 82 Resp 22 22 B/P (MAP) 146/64 (91) 157/70 (99) 154/63 (93) Pulse Ox 95 97 99 95 O2 Delivery Room Air Room Air Room Air Room Air 12/13/18 12/13/18 12/13/18 12/13/18 20:53 21:10 21:30 23:00 Temp 101.1 101.3 101.1 101.3 Pulse 77 73 Resp 19 18 18 B/P (MAP) 90/52 (65) 103/47 (65) Pulse Ox 94 96 93 O2 Delivery Room Air Room Air Room Air Room Air 12/14/18 12/14/18 12/14/18 12/14/18 00:50 03:00 05:08 05:51 Temp 98.4 98.4 Pulse 63 Resp 18 B/P (MAP) 99/54 (69) Pulse Ox 96 O2 Delivery Room Air Room Air Room Air Room Air 12/14/18 12/14/18 07:00 08:15 Temp 101.5 101.5 Pulse 83 Resp 20 B/P (MAP) 102/40 (60) Pulse Ox 95 O2 Delivery Room Air Room Air Intake and Output 12/13/18 12/13/18 12/14/18 15:00 23:00 07:00 Intake Total 1400 ml Output Total 250 ml Balance 1400 ml -250 ml ISAIAH GARCIA MD Dec 14, 2018 09:59
[2018-12-14 11:00] VITALS: BP 94/54
[2018-12-14] MEDS: PIPERACILLIN/TAZOBACTAM 3.375 GM in IV NORMAL SALINE 50ML 50 ML IV SCH ×3 (12:02→23:52)
[2018-12-14 12:32] LABS: % ATYL 1 % (0-0); % BANDS 8 % (0-9); % LYMPHS 20 % (24-48); % MONOS 2 % (0-10); % SEGS 69 % (35-66); PLT ESTIMATE DECREASED (ADEQUATE)
--- NOTE | 2018-12-14 12:55 | EKG ---
[facility] [address] [place] [id number] Test Date: 2018-12-13 Test Time: 17:33:18 Pat Name: SURJIT RITCHIE Department: Room: Gender: M [employer] Consult[employer]: : 1950 Requested By: BORA HU Order Number: [id number] Reading MD: Measurements Intervals [place] Rate: 60 P: 59 MO: 152 QRS: 70 QRSD: 74 T: 39 QT: 370 QTc: 374 Interpretive Statements SINUS ARRHYTHMIA NO SPECIFIC ECG ABNORMALITIES RI6.01 No previous ECG available for comparison
--- NOTE | 2018-12-14 13:19 | PDOC2 ---
UROLOGY CONSULT Date of Consult Date of Consult DATE: 12/14/18 TIME: 13:13 Reason for Consult Reason for Consult: prostatitis Source Source: Chart review, Patient History of Present Illness Reason for Visit: 68 yo male with 2 days of dysuria,pelvic pain, fevers. Pelvic pain radiates to upper abdomen. UA consistent with infection. CT consistent with acute prostatit is, no prostatic abscess noted. Admitted on 12/13/18. Today he feels better, much less dysuria and feels like he is voiding with less difficulty. No hematuria. No prior prostate infections. Mild BPH symptoms at baseline. PSA 7 on 12/13/18 Past Medical History Renal/: Benign prostatic enlarg. Past Surgical History Past Surgical History: No pertinent history Family History Family History: Cancer, Other (prostate ca- father) Social History No ALCOHOL: none Drugs: None Current Medications Current Medications Current Medications Acetaminophen (Tylenol) 650 mg PRN Q4HRS PRN PO FEVER Last administered on 12/14/18at 08:05; Start 12/13/18 at 20:30; Stop 12/14/18 at 20:29 Ciprofloxacin/ Dextrose 200 ml @ 200 mls/hr 1X ONCE IV Last administered on 12/13/18at 20:02; Start 12/13/18 at 19:45; Stop 12/13/18 at 20:44; Status DC Ciprofloxacin/ Dextrose 200 ml @ 200 mls/hr Q12HR IV Last administered on 12/14/18at 08:05; Start 12/14/18 at 09:00; Stop 12/14/18 at 09:32; Status DC Famotidine (Pepcid Vial) 20 mg 1X ONCE IVP Last administered on 12/13/18at 17:32; Start 12/13/18 at 17:00; Stop 12/13/18 at 17:28; Status DC Info (CONTRAST GIVEN -- Rx MONITORING) 1 each PRN DAILY PRN MC SEE COMMENTS; Start 12/13/18 at 19:00; Stop 12/15/18 at 18:59 Iohexol (Omnipaque 300 Mg/ml) 75 ml 1X ONCE IV Last administered on 12/13/18at 19:05; Start 12/13/18 at 19:00; Stop 12/13/18 at 19:01; Status DC Lactobacillus Rhamnosus (Culturelle) 1 cap BID PO ; Start 12/14/18 at 21:00 Magnesium Sulfate/ Dextrose 100 ml @ 100 mls/hr 1X ONCE IV Last administered on 12/13/18at 23:40; Start 12/13/18 at 20:15; Stop 12/13/18 at 21:14; Status DC Morphine Sulfate (Morphine Sulfate) 4 mg PRN Q2HR PRN IV PAIN Last administered on 12/14/18at 08:15; Start 12/13/18 at 20:30; Stop 12/14/18 at 20:29 Morphine Sulfate (Morphine Sulfate) 5 mg 1X ONCE IV Last administered on 12/13/18at 20:16; Start 12/13/18 at 20:15; Stop 12/13/18 at 20:16; Status DC Ondansetron HCl (Zofran) 4 mg 1X ONCE IV Last administered on 12/13/18at 17:32; Start 12/13/18 at 17:00; Stop 12/13/18 at 17:28; Status DC Ondansetron HCl (Zofran) 4 mg PRN Q8HRS PRN IV NAUSEA/VOMITING Last administered on 12/14/18at 09:43; Start 12/13/18 at 20:30; Stop 12/14/18 at 20:29 Oxycodone/ Acetaminophen (Percocet 5/325) 1 tab PRN Q4HRS PRN PO PAIN; Start 12/14/18 at 10:00 Piperacillin Sod/ Tazobactam Sod (Zosyn Per Pharmacy) 1 each PRN DAILY PRN MC SEE COMMENTS; Start 12/14/18 at 09:45 Piperacillin Sod/ Tazobactam Sod 3.375 gm/Sodium Chloride 50 ml @ 100 mls/hr Q6HRS IV Last administered on 12/14/18at 12:02; Start 12/14/18 at 12:00 Sodium Chloride 1,000 ml @ 0 mls/hr 1X ONCE IV Last administered on 12/14/18at 05:48; Start 12/14/18 at 06:00; Stop 12/14/18 at 07:00; Status DC Sodium Chloride 1,000 ml @ 100 mls/hr Q10H IV Last administered on 12/14/18at 07:11; Start 12/13/18 at 20:15 Sodium Chloride 1,000 ml @ 125 mls/hr 1X ONCE IV ; Start 12/13/18 at 20:30; Stop 12/14/18 at 04:29; Status DC Sodium Chloride 1,000 ml @ 1,000 mls/hr 1X ONCE IV Last administered on 12/13/18at 17:32; Start 12/13/18 at 17:00; Stop 12/13/18 at 17:59; Status DC Tamsulosin HCl (Flomax) 0.4 mg QHS PO Last administered on 12/13/18at 23:40; Start 12/13/18 at 22:00 Zolpidem Tartrate (Ambien) 5 mg PRN QHS PRN PO INSOMNIA; Start 12/13/18 at 20:30 Allergies Allergies: Coded Allergies: No Known Drug Allergies (Unverified , 12/13/18) ROS Review Of Systems: CONSTITUTIONAL: + fever and chills EYES: No recent changes SKIN: No rash or itching CARDIOVASCULAR: No chest pain, syncope, palpitations, or edema RESPIRATORY: No SOB or cough GASTROINTESTINAL: No nausea, vomiting NEUROLOGICAL: No headaches or weakness ENDOCRINE: No cold or heat intolerance GENITOURINARY: as in HPI MUSCULOSKELETAL: No back pain or joint pain LYMPHATICS: No enlarged lymph nodes PSYCHIATRIC: No anxiety or depression Physical Exam Physical Exam: General: Pleasant, no acute distress, well groomed Eyes: conjunctiva anicteric, eyes full range of motion ENT: moist oral mucosa, normal dentition Neck: Trachea midline, no masses Respiratory: unlabored breathing, not using accessory muscles, no crackles or wheezes Cardiovascular: Regular rate and rhythm, no peripheral edema Abdomen: nontender, nondistended, no hepatosplenomegaly, no masses Skin: no rashes or skin lesions on visualized skin Psych: normal mood, affect. Alert and oriented x 3. : prostate 50 grams, tender, no bogginess or fluctuance. Right testicle mildly tender without enlargement or mass. Left testicle normal. No perineal tenderness or swelling. Vitals VITALS Vital Signs Date Time Temp Pulse Resp B/P (MAP) Pulse Ox O2 Delivery O2 Flow Rate FiO2 12/14/18 11:00 98.7 65 18 94/54 (67) 92 Room Air 98.7 Labs Labs Laboratory Tests Test 12/13/18 17:20 12/14/18 03:30 White Blood Count 17.1 x10^3/uL (4.0-11.0) 19.2 x10^3/uL (4.0-11.0) Red Blood Count 4.81 x10^6/uL (4.30-5.70) 4.53 x10^6/uL (4.30-5.70) Hemoglobin 14.5 g/dL (13.0-17.5) 13.6 g/dL (13.0-17.5) Hematocrit 42.2 % (39.0-53.0) 39.8 % (39.0-53.0) Mean Corpuscular Volume 88 fL (79-100) 88 fL (79-100) Mean Corpuscular Hemoglobin 30 pg (25-35) 30 pg (25-35) Mean Corpuscular Hemoglobin Concent 34 g/dL (31-37) 34 g/dL (31-37) Red Cell Distribution Width 13.9 % (11.5-14.5) 13.9 % (11.5-14.5) Platelet Count 152 x10^3/uL (140-400) 126 x10^3/uL (140-400) Neutrophils (%) (Auto) 67 % (31-73) 73 % (31-73) Lymphocytes (%) (Auto) 30 % (24-48) 24 % (24-48) Monocytes (%) (Auto) 2 % (0-9) 3 % (0-9) Eosinophils (%) (Auto) 0 % (0-3) 0 % (0-3) Basophils (%) (Auto) 0 % (0-3) 0 % (0-3) Neutrophils # (Auto) 11.4 x10^3/uL (1.8-7.7) 14.0 x10^3/uL (1.8-7.7) Lymphocytes # (Auto) 5.2 x10^3/uL (1.0-4.8) 4.6 x10^3/uL (1.0-4.8) Monocytes # (Auto) 0.4 x10^3/uL (0.0-1.1) 0.5 x10^3/uL (0.0-1.1) Eosinophils # (Auto) 0.0 x10^3/uL (0.0-0.7) 0.0 x10^3/uL (0.0-0.7) Basophils # (Auto) 0.1 x10^3/uL (0.0-0.2) 0.1 x10^3/uL (0.0-0.2) Prothrombin Time 14.8 SEC (11.7-14.0) Prothromb Time International Ratio 1.2 (0.8-1.1) Urine Collection Type Unknown Urine Color Yuko Urine Clarity Clear Urine pH 8.0 Urine Specific Hersey 1.020 Urine Protein Negative mg/dL (NEG-TRACE) Urine Glucose (UA) Negative mg/dL (NEG) Urine Ketones (Stick) Trace mg/dL (NEG) Urine Blood Small (NEG) Urine Nitrite Negative (NEG) Urine Bilirubin Negative (NEG) Urine Urobilinogen Dipstick 1.0 mg/dL (0.2 mg/dL) Urine Leukocyte Esterase Large (NEG) Urine RBC 3-5 /HPF (0-2) Urine WBC >40 /HPF (0-4) Urine Squamous Epithelial Cells Occ /LPF Urine Bacteria Few /HPF (0-FEW) Urine Mucus Mod /LPF Sodium Level 139 mmol/L (136-145) 138 mmol/L (136-145) Potassium Level 3.6 mmol/L (3.5-5.1) 3.7 mmol/L (3.5-5.1) Chloride Level 105 mmol/L (98-107) 105 mmol/L (98-107) Carbon Dioxide Level 24 mmol/L (21-32) 24 mmol/L (21-32) Anion Gap 10 (6-14) 9 (6-14) Blood Urea Nitrogen 13 mg/dL (8-26) 16 mg/dL (8-26) Creatinine 1.1 mg/dL (0.7-1.3) 1.3 mg/dL (0.7-1.3) Estimated GFR (Cockcroft-Gault) 80.5 66.4 BUN/Creatinine Ratio 12 (6-20) Glucose Level 107 mg/dL (70-99) 150 mg/dL (70-99) Calcium Level 9.1 mg/dL (8.5-10.1) 8.3 mg/dL (8.5-10.1) Magnesium Level 1.7 mg/dL (1.8-2.4) 1.9 mg/dL (1.8-2.4) Total Bilirubin 1.7 mg/dL (0.2-1.0) Aspartate Amino Transf (AST/SGOT) 13 U/L (15-37) Alanine Aminotransferase (ALT/SGPT) 25 U/L (16-63) Alkaline Phosphatase 79 U/L (46-116) Creatine Kinase 73 U/L (39-308) Creatine Kinase MB (Mass) < 0.5 ng/mL (0.0-3.6) Creatine Kinase MB Relative Index % (0-4) Troponin I Quantitative < 0.017 ng/mL (0.000-0.055) XI-Emt-L-Type Natriuretic Peptide 485 pg/mL (0-124) Total Protein 7.0 g/dL (6.4-8.2) Albumin 3.7 g/dL (3.4-5.0) Albumin/Globulin Ratio 1.1 (1.0-1.7) Lipase 57 U/L (73-393) Prostate Specific Antigen 7.01 ng/mL (0.00-4.00) Thyroid Stimulating Hormone (TSH) 0.172 uIU/mL (0.358-3.74) Urine Opiates Screen Neg (NEG) Urine Methadone Screen Neg (NEG) Urine Barbiturates Neg (NEG) Urine Phencyclidine Screen Neg (NEG) Urine Amphetamine/Methamphetamine Neg (NEG) Urine Benzodiazepines Screen Neg (NEG) Urine Cocaine Screen Neg (NEG) Urine Cannabinoids Screen Pos (NEG) Urine Ethyl Alcohol Neg (NEG) Segmented Neutrophils % 69 % (35-66) Band Neutrophils % 8 % (0-9) Lymphocytes % 20 % (24-48) Atypical Lymphocytes % (Manual) 1 % (0-0) Monocytes % 2 % (0-10) Platelet Estimate Decreased (ADEQUATE) Lactic Acid Level 1.1 mmol/L (0.4-2.0) Laboratory Tests Test 12/13/18 17:20 12/14/18 03:30 White Blood Count 17.1 x10^3/uL (4.0-11.0) 19.2 x10^3/uL (4.0-11.0) Red Blood Count 4.81 x10^6/uL (4.30-5.70) 4.53 x10^6/uL (4.30-5.70) Hemoglobin 14.5 g/dL (13.0-17.5) 13.6 g/dL (13.0-17.5) Hematocrit 42.2 % (39.0-53.0) 39.8 % (39.0-53.0) Mean Corpuscular Volume 88 fL (79-100) 88 fL (79-100) Mean Corpuscular Hemoglobin 30 pg (25-35) 30 pg (25-35) Mean Corpuscular Hemoglobin Concent 34 g/dL (31-37) 34 g/dL (31-37) Red Cell Distribution Width 13.9 % (11.5-14.5) 13.9 % (11.5-14.5) Platelet Count 152 x10^3/uL (140-400) 126 x10^3/uL (140-400) Neutrophils (%) (Auto) 67 % (31-73) 73 % (31-73) Lymphocytes (%) (Auto) 30 % (24-48) 24 % (24-48) Monocytes (%) (Auto) 2 % (0-9) 3 % (0-9) Eosinophils (%) (Auto) 0 % (0-3) 0 % (0-3) Basophils (%) (Auto) 0 % (0-3) 0 % (0-3) Neutrophils # (Auto) 11.4 x10^3/uL (1.8-7.7) 14.0 x10^3/uL (1.8-7.7) Lymphocytes # (Auto) 5.2 x10^3/uL (1.0-4.8) 4.6 x10^3/uL (1.0-4.8) Monocytes # (Auto) 0.4 x10^3/uL (0.0-1.1) 0.5 x10^3/uL (0.0-1.1) Eosinophils # (Auto) 0.0 x10^3/uL (0.0-0.7) 0.0 x10^3/uL (0.0-0.7) Basophils # (Auto) 0.1 x10^3/uL (0.0-0.2) 0.1 x10^3/uL (0.0-0.2) Prothrombin Time 14.8 SEC (11.7-14.0) Prothromb Time International Ratio 1.2 (0.8-1.1) Urine Collection Type Unknown Urine Color Yuko Urine Clarity Clear Urine pH 8.0 Urine Specific Hersey 1.020 Urine Protein Negative mg/dL (NEG-TRACE) Urine Glucose (UA) Negative mg/dL (NEG) Urine Ketones (Stick) Trace mg/dL (NEG) Urine Blood Small (NEG) Urine Nitrite Negative (NEG) Urine Bilirubin Negative (NEG) Urine Urobilinogen Dipstick 1.0 mg/dL (0.2 mg/dL) Urine Leukocyte Esterase Large (NEG) Urine RBC 3-5 /HPF (0-2) Urine WBC >40 /HPF (0-4) Urine Squamous Epithelial Cells Occ /LPF Urine Bacteria Few /HPF (0-FEW) Urine Mucus Mod /LPF Sodium Level 139 mmol/L (136-145) 138 mmol/L (136-145) Potassium Level 3.6 mmol/L (3.5-5.1) 3.7 mmol/L (3.5-5.1) Chloride Level 105 mmol/L (98-107) 105 mmol/L (98-107) Carbon Dioxide Level 24 mmol/L (21-32) 24 mmol/L (21-32) Anion Gap 10 (6-14) 9 (6-14) Blood Urea Nitrogen 13 mg/dL (8-26) 16 mg/dL (8-26) Creatinine 1.1 mg/dL (0.7-1.3) 1.3 mg/dL (0.7-1.3) Estimated GFR (Cockcroft-Gault) 80.5 66.4 BUN/Creatinine Ratio 12 (6-20) Glucose Level 107 mg/dL (70-99) 150 mg/dL (70-99) Calcium Level 9.1 mg/dL (8.5-10.1) 8.3 mg/dL (8.5-10.1) Magnesium Level 1.7 mg/dL (1.8-2.4) 1.9 mg/dL (1.8-2.4) Total Bilirubin 1.7 mg/dL (0.2-1.0) Aspartate Amino Transf (AST/SGOT) 13 U/L (15-37) Alanine Aminotransferase (ALT/SGPT) 25 U/L (16-63) Alkaline Phosphatase 79 U/L (46-116) Creatine Kinase 73 U/L (39-308) Creatine Kinase MB (Mass) < 0.5 ng/mL (0.0-3.6) Creatine Kinase MB Relative Index % (0-4) Troponin I Quantitative < 0.017 ng/mL (0.000-0.055) [id number]-Type Natriuretic Peptide 485 pg/mL (0-124) Total Protein 7.0 g/dL (6.4-8.2) Albumin 3.7 g/dL (3.4-5.0) Albumin/Globulin Ratio 1.1 (1.0-1.7) Lipase 57 U/L (73-393) Prostate Specific Antigen 7.01 ng/mL (0.00-4.00) Thyroid Stimulating Hormone (TSH) 0.172 uIU/mL (0.358-3.74) Urine Opiates Screen Neg (NEG) Urine Methadone Screen Neg (NEG) Urine Barbiturates Neg (NEG) Urine Phencyclidine Screen Neg (NEG) Urine Amphetamine/Methamphetamine Neg (NEG) Urine Benzodiazepines Screen Neg (NEG) Urine Cocaine Screen Neg (NEG) Urine Cannabinoids Screen Pos (NEG) Urine Ethyl Alcohol Neg (NEG) Segmented Neutrophils % 69 % (35-66) Band Neutrophils % 8 % (0-9) Lymphocytes % 20 % (24-48) Atypical Lymphocytes % (Manual) 1 % (0-0) Monocytes % 2 % (0-10) Platelet Estimate Decreased (ADEQUATE) Lactic Acid Level 1.1 mmol/L (0.4-2.0) Assessment/Plan Assessment/Plan Acute prostatitis: Agree with current antibiotics. Would give cipro 500 mg PO BID X 6 weeks. Continue flomax. Continue to monitor in hospital until afebrile x 24 hours and WBC improving. Recheck PSA in 6 weeks - unreliable in setting of acute prostatitis / UTI. SARA AMAYA MD Dec 14, 2018 13:19
[2018-12-14] MEDS: oxyCODONE/APAP 5/325 1 TAB TABLET PO PRN ×3 (14:11→22:31)
[2018-12-14 15:00] VITALS: BP 104/56
[2018-12-14 19:00] VITALS: BP 101/50
[2018-12-14] MEDS ORDERED: CALCIUM CARBONATE 500 MG TAB.CHEW PO PRN (19:00)
[2018-12-14] MEDS: PANTOPRAZOLE 40 MG TABLET.DR. PO SCH (19:04)
[2018-12-14] MEDS ORDERED: ONDANSETRON PF 4 MG/2 ML VIAL. IV PRN (19:15)
[2018-12-14] MEDS: LACTOBACILLUS RHAMNOSUS GG 1 CAPSULE. PO SCH (20:39)
[2018-12-14] MEDS: TAMSULOSIN 0.4 MG CAP.ER.24H. PO SCH (20:39)
[2018-12-14 23:00] VITALS: BP 109/59
[2018-12-15 03:00] VITALS: BP 106/51
[2018-12-15] MEDS: oxyCODONE/APAP 5/325 1 TAB TABLET PO PRN ×3 (03:36→20:59)
[2018-12-15] MEDS: IV NORMAL SALINE 1000ML BAG 1,000 ML IV SCH ×2 (03:36→14:29)
[2018-12-15] MEDS: MORPHINE SULFATE 4 MG/ML VIAL. IV PRN ×3 (04:09→21:31)
[2018-12-15] MEDS: PIPERACILLIN/TAZOBACTAM 3.375 GM in IV NORMAL SALINE 50ML 50 ML IV SCH ×4 (05:34→22:37)
[2018-12-15] MEDS ORDERED: ONDANSETRON PF 4 MG/2 ML VIAL. IV PRN (05:45)
[2018-12-15 07:00] VITALS: BP 110/54
[2018-12-15] MEDS: PANTOPRAZOLE 40 MG TABLET.DR. PO SCH (07:55)
[2018-12-15] MEDS: LACTOBACILLUS RHAMNOSUS GG 1 CAPSULE. PO SCH ×3 (09:00→21:00)
[2018-12-15 10:11] LABS: BASO # 0.1 x10^3/uL (0.0-0.2); BASO % 0 % (0-3); EOS # 0.1 x10^3/uL (0.0-0.7); EOS % 1 % (0-3); HEMATOCRIT 35.7 % (39.0-53.0); HEMOGLOBIN 12.3 g/dL (13.0-17.5); LYMPH # 3.1 x10^3/uL (1.0-4.8); LYMPH % 21 % (24-48); MEAN CORPUSCULAR HEMOGLOBIN 31 pg (25-35); MEAN CORPUSCULAR HGB CONC 35 g/dL (31-37); MEAN CORPUSCULAR VOLUME 89 fL (79-100); MONO # 0.4 x10^3/uL (0.0-1.1); MONO % 3 % (0-9); NEUT # 10.9 x10^3/uL (1.8-7.7); NEUT % 75 % (31-73); PLATELET COUNT 98 x10^3/uL (140-400); RED BLOOD COUNT 4.04 x10^6/uL (4.30-5.70); RED CELL DISTRIBUTION WIDTH 14.3 % (11.5-14.5); WHITE BLOOD COUNT 14.6 x10^3/uL (4.0-11.0)
[2018-12-15 10:31] LABS: CALCIUM 8.1 mg/dL (8.5-10.1); CREATININE 1.1 mg/dL (0.7-1.3); GFR 80.5; POTASSIUM 3.4 mmol/L (3.5-5.1)
[2018-12-15 11:00] VITALS: BP 117/52
--- NOTE | 2018-12-15 12:29 | PDOC ---
PROGRESS NOTES Chief Complaint Chief Complaint sepsis prostatitis UTI BPH, symptomatic Hypomagnesemia nausea and vomiting History of Present Illness History of Present Illness no fever zosyn, blood cx neg, urine cx pending very poor Po intake, a lot of pain with urination Urology consult following, appreciate, flomax NO home meds to reconcile Vitals Vitals Vital Signs Date Time Temp Pulse Resp B/P (MAP) Pulse Ox O2 Delivery O2 Flow Rate FiO2 12/15/18 11:11 20 Room Air 12/15/18 11:00 98.6 59 117/52 (73) 98 98.6 Physical Exam General: Alert, Oriented X3, Cooperative, mild distress Heart: Regular rate, No murmurs Lungs: Clear Abdomen: Normal bowel sounds, Soft, No tenderness, No hepatosplenomegaly, No masses Extremities: No clubbing, No cyanosis, No edema, Normal pulses, No tenderness/swelling Skin: No rashes, No breakdown, No significant lesion Labs LABS Laboratory Tests Test 12/15/18 09:55 12/15/18 09:58 White Blood Count 14.6 x10^3/uL (4.0-11.0) Red Blood Count 4.04 x10^6/uL (4.30-5.70) Hemoglobin 12.3 g/dL (13.0-17.5) Hematocrit 35.7 % (39.0-53.0) Mean Corpuscular Volume 89 fL (79-100) Mean Corpuscular Hemoglobin 31 pg (25-35) Mean Corpuscular Hemoglobin Concent 35 g/dL (31-37) Red Cell Distribution Width 14.3 % (11.5-14.5) Platelet Count 98 x10^3/uL (140-400) Neutrophils (%) (Auto) 75 % (31-73) Lymphocytes (%) (Auto) 21 % (24-48) Monocytes (%) (Auto) 3 % (0-9) Eosinophils (%) (Auto) 1 % (0-3) Basophils (%) (Auto) 0 % (0-3) Neutrophils # (Auto) 10.9 x10^3/uL (1.8-7.7) Lymphocytes # (Auto) 3.1 x10^3/uL (1.0-4.8) Monocytes # (Auto) 0.4 x10^3/uL (0.0-1.1) Eosinophils # (Auto) 0.1 x10^3/uL (0.0-0.7) Basophils # (Auto) 0.1 x10^3/uL (0.0-0.2) Sodium Level 136 mmol/L (136-145) Potassium Level 3.4 mmol/L (3.5-5.1) Chloride Level 105 mmol/L (98-107) Carbon Dioxide Level 25 mmol/L (21-32) Anion Gap 6 (6-14) Blood Urea Nitrogen 16 mg/dL (8-26) Creatinine 1.1 mg/dL (0.7-1.3) Estimated GFR (Cockcroft-Gault) 80.5 Glucose Level 139 mg/dL (70-99) Calcium Level 8.1 mg/dL (8.5-10.1) Review of Systems Review of Systems nausea poor po intake pain, lower pain with urination, bright orange urine, I though from phenazo, hadnt started yet Assessment and Plan Assessmemt and Plan Problems Medical Problems: (1) Acute prostatitis Status: Acute Comment Review of Relevant I have reviewed the following items dionisio (where applicable) has been applied. Labs Laboratory Tests Test 12/13/18 17:20 12/14/18 03:30 12/15/18 09:55 12/15/18 09:58 White Blood Count 17.1 x10^3/uL (4.0-11.0) 19.2 x10^3/uL (4.0-11.0) 14.6 x10^3/uL (4.0-11.0) Red Blood Count 4.81 x10^6/uL (4.30-5.70) 4.53 x10^6/uL (4.30-5.70) 4.04 x10^6/uL (4.30-5.70) Hemoglobin 14.5 g/dL (13.0-17.5) 13.6 g/dL (13.0-17.5) 12.3 g/dL (13.0-17.5) Hematocrit 42.2 % (39.0-53.0) 39.8 % (39.0-53.0) 35.7 % (39.0-53.0) Mean Corpuscular Volume 88 fL (79-100) 88 fL (79-100) 89 fL (79-100) Mean Corpuscular Hemoglobin 30 pg (25-35) 30 pg (25-35) 31 pg (25-35) Mean Corpuscular Hemoglobin Concent 34 g/dL (31-37) 34 g/dL (31-37) 35 g/dL (31-37) Red Cell Distribution Width 13.9 % (11.5-14.5) 13.9 % (11.5-14.5) 14.3 % (11.5-14.5) Platelet Count 152 x10^3/uL (140-400) 126 x10^3/uL (140-400) 98 x10^3/uL (140-400) Neutrophils (%) (Auto) 67 % (31-73) 73 % (31-73) 75 % (31-73) Lymphocytes (%) (Auto) 30 % (24-48) 24 % (24-48) 21 % (24-48) Monocytes (%) (Auto) 2 % (0-9) 3 % (0-9) 3 % (0-9) Eosinophils (%) (Auto) 0 % (0-3) 0 % (0-3) 1 % (0-3) Basophils (%) (Auto) 0 % (0-3) 0 % (0-3) 0 % (0-3) Neutrophils # (Auto) 11.4 x10^3/uL (1.8-7.7) 14.0 x10^3/uL (1.8-7.7) 10.9 x10^3/uL (1.8-7.7) Lymphocytes # (Auto) 5.2 x10^3/uL (1.0-4.8) 4.6 x10^3/uL (1.0-4.8) 3.1 x10^3/uL (1.0-4.8) Monocytes # (Auto) 0.4 x10^3/uL (0.0-1.1) 0.5 x10^3/uL (0.0-1.1) 0.4 x10^3/uL (0.0-1.1) Eosinophils # (Auto) 0.0 x10^3/uL (0.0-0.7) 0.0 x10^3/uL (0.0-0.7) 0.1 x10^3/uL (0.0-0.7) Basophils # (Auto) 0.1 x10^3/uL (0.0-0.2) 0.1 x10^3/uL (0.0-0.2) 0.1 x10^3/uL (0.0-0.2) Prothrombin Time 14.8 SEC (11.7-14.0) Prothromb Time International Ratio 1.2 (0.8-1.1) Urine Collection Type Unknown Urine Color [place] Urine Clarity Clear Urine pH 8.0 Urine Specific [place] 1.020 Urine Protein Negative mg/dL (NEG-TRACE) Urine Glucose (UA) Negative mg/dL (NEG) Urine Ketones (Stick) Trace mg/dL (NEG) Urine Blood Small (NEG) Urine Nitrite Negative (NEG) Urine Bilirubin Negative (NEG) Urine Urobilinogen Dipstick 1.0 mg/dL (0.2 mg/dL) Urine Leukocyte Esterase Large (NEG) Urine RBC 3-5 /HPF (0-2) Urine WBC >40 /HPF (0-4) Urine Squamous Epithelial Cells Occ /LPF Urine Bacteria Few /HPF (0-FEW) Urine Mucus Mod /LPF Sodium Level 139 mmol/L (136-145) 138 mmol/L (136-145) 136 mmol/L (136-145) Potassium Level 3.6 mmol/L (3.5-5.1) 3.7 mmol/L (3.5-5.1) 3.4 mmol/L (3.5-5.1) Chloride Level 105 mmol/L (98-107) 105 mmol/L (98-107) 105 mmol/L (98-107) Carbon Dioxide Level 24 mmol/L (21-32) 24 mmol/L (21-32) 25 mmol/L (21-32) Anion Gap 10 (6-14) 9 (6-14) 6 (6-14) Blood Urea Nitrogen 13 mg/dL (8-26) 16 mg/dL (8-26) 16 mg/dL (8-26) Creatinine 1.1 mg/dL (0.7-1.3) 1.3 mg/dL (0.7-1.3) 1.1 mg/dL (0.7-1.3) Estimated GFR (Cockcroft-Gault) 80.5 66.4 80.5 BUN/Creatinine Ratio 12 (6-20) Glucose Level 107 mg/dL (70-99) 150 mg/dL (70-99) 139 mg/dL (70-99) Calcium Level 9.1 mg/dL (8.5-10.1) 8.3 mg/dL (8.5-10.1) 8.1 mg/dL (8.5-10.1) Magnesium Level 1.7 mg/dL (1.8-2.4) 1.9 mg/dL (1.8-2.4) Total Bilirubin 1.7 mg/dL (0.2-1.0) Aspartate Amino Transf (AST/SGOT) 13 U/L (15-37) Alanine Aminotransferase (ALT/SGPT) 25 U/L (16-63) Alkaline Phosphatase 79 U/L (46-116) Creatine Kinase 73 U/L (39-308) Creatine Kinase MB (Mass) < 0.5 ng/mL (0.0-3.6) Creatine Kinase MB Relative Index % (0-4) Troponin I Quantitative < 0.017 ng/mL (0.000-0.055) JU-Hmo-K-Type Natriuretic Peptide 485 pg/mL (0-124) Total Protein 7.0 g/dL (6.4-8.2) Albumin 3.7 g/dL (3.4-5.0) Albumin/Globulin Ratio 1.1 (1.0-1.7) Lipase 57 U/L (73-393) Prostate Specific Antigen 7.01 ng/mL (0.00-4.00) Thyroid Stimulating Hormone (TSH) 0.172 uIU/mL (0.358-3.74) Urine Opiates Screen Neg (NEG) Urine Methadone Screen Neg (NEG) Urine Barbiturates Neg (NEG) Urine Phencyclidine Screen Neg (NEG) Urine Amphetamine/Methamphetamine Neg (NEG) Urine Benzodiazepines Screen Neg (NEG) Urine Cocaine Screen Neg (NEG) Urine Cannabinoids Screen Pos (NEG) Urine Ethyl Alcohol Neg (NEG) Segmented Neutrophils % 69 % (35-66) Band Neutrophils % 8 % (0-9) Lymphocytes % 20 % (24-48) Atypical Lymphocytes % (Manual) 1 % (0-0) Monocytes % 2 % (0-10) Platelet Estimate Decreased (ADEQUATE) Lactic Acid Level 1.1 mmol/L (0.4-2.0) Laboratory Tests Test 12/15/18 09:55 12/15/18 09:58 White Blood Count 14.6 x10^3/uL (4.0-11.0) Red Blood Count 4.04 x10^6/uL (4.30-5.70) Hemoglobin 12.3 g/dL (13.0-17.5) Hematocrit 35.7 % (39.0-53.0) Mean Corpuscular Volume 89 fL (79-100) Mean Corpuscular Hemoglobin 31 pg (25-35) Mean Corpuscular Hemoglobin Concent 35 g/dL (31-37) Red Cell Distribution Width 14.3 % (11.5-14.5) Platelet Count 98 x10^3/uL (140-400) Neutrophils (%) (Auto) 75 % (31-73) Lymphocytes (%) (Auto) 21 % (24-48) Monocytes (%) (Auto) 3 % (0-9) Eosinophils (%) (Auto) 1 % (0-3) Basophils (%) (Auto) 0 % (0-3) Neutrophils # (Auto) 10.9 x10^3/uL (1.8-7.7) Lymphocytes # (Auto) 3.1 x10^3/uL (1.0-4.8) Monocytes # (Auto) 0.4 x10^3/uL (0.0-1.1) Eosinophils # (Auto) 0.1 x10^3/uL (0.0-0.7) Basophils # (Auto) 0.1 x10^3/uL (0.0-0.2) Sodium Level 136 mmol/L (136-145) Potassium Level 3.4 mmol/L (3.5-5.1) Chloride Level 105 mmol/L (98-107) Carbon Dioxide Level 25 mmol/L (21-32) Anion Gap 6 (6-14) Blood Urea Nitrogen 16 mg/dL (8-26) Creatinine 1.1 mg/dL (0.7-1.3) Estimated GFR (Cockcroft-Gault) 80.5 Glucose Level 139 mg/dL (70-99) Calcium Level 8.1 mg/dL (8.5-10.1) Microbiology 12/14/18 Blood Culture - Preliminary, Resulted NO GROWTH AFTER 1 DAY Medications Current Medications Famotidine (Pepcid Vial) 20 mg 1X ONCE IVP Last administered on 12/13/18 17:32; Start 12/13/18 at 17:00; Stop 12/13/18 at 17:28; Status DC Ondansetron HCl (Zofran) 4 mg 1X ONCE IV Last administered on 12/13/18at 17:32; Start 12/13/18 at 17:00; Stop 12/13/18 at 17:28; Status DC Sodium Chloride 1,000 ml @ 1,000 mls/hr 1X ONCE IV Last administered on 12/13/18at 17:32; Start 12/13/18 at 17:00; Stop 12/13/18 at 17:59; Status DC Iohexol (Omnipaque 300 Mg/ml) 75 ml 1X ONCE IV Last administered on 12/13/18at 19:05; Start 12/13/18 at 19:00; Stop 12/13/18 at 19:01; Status DC Info (CONTRAST GIVEN -- Rx MONITORING) 1 each PRN DAILY PRN MC SEE COMMENTS; Start 12/13/18 at 19:00; Stop 12/15/18 at 18:59 Ciprofloxacin/ Dextrose 200 ml @ 200 mls/hr 1X ONCE IV Last administered on 12/13/18at 20:02; Start 12/13/18 at 19:45; Stop 12/13/18 at 20:44; Status DC Morphine Sulfate (Morphine Sulfate) 5 mg 1X ONCE IV Last administered on 12/13/18at 20:16; Start 12/13/18 at 20:15; Stop 12/13/18 at 20:16; Status DC Ciprofloxacin/ Dextrose 200 ml @ 200 mls/hr Q12HR IV Last administered on 12/14/18at 08:05; Start 12/14/18 at 09:00; Stop 12/14/18 at 09:32; Status DC Magnesium Sulfate/ Dextrose 100 ml @ 100 mls/hr 1X ONCE IV Last administered on 12/13/18at 23:40; Start 12/13/18 at 20:15; Stop 12/13/18 at 21:14; Status DC Sodium Chloride 1,000 ml @ 100 mls/hr Q10H IV Last administered on 12/15/18at 03:36; Start 12/13/18 at 20:15 Zolpidem Tartrate (Ambien) 5 mg PRN QHS PRN PO INSOMNIA; Start 12/13/18 at 20:30 Ondansetron HCl (Zofran) 4 mg PRN Q8HRS PRN IV NAUSEA/VOMITING Last administered on 12/14/18at 09:43; Start 12/13/18 at 20:30; Stop 12/14/18 at 20:29; Status DC Morphine Sulfate (Morphine Sulfate) 4 mg PRN Q2HR PRN IV PAIN Last administered on 12/14/18at 08:15; Start 12/13/18 at 20:30; Stop 12/14/18 at 20:29; Status DC Acetaminophen (Tylenol) 650 mg PRN Q4HRS PRN PO FEVER Last administered on 12/14/18at 08:05; Start 12/13/18 at 20:30; Stop 12/14/18 at 20:29; Status DC Sodium Chloride 1,000 ml @ 125 mls/hr 1X ONCE IV ; Start 12/13/18 at 20:30; Stop 12/14/18 at 04:29; Status DC Tamsulosin HCl (Flomax) 0.4 mg QHS PO Last administered on 12/14/18at 20:40; Start 12/13/18 at 22:00 Sodium Chloride 1,000 ml @ 0 mls/hr 1X ONCE IV Last administered on 12/14/18at 05:48; Start 12/14/18 at 06:00; Stop 12/14/18 at 07:00; Status DC Piperacillin Sod/ Tazobactam Sod (Zosyn Per Pharmacy) 1 each PRN DAILY PRN MC SEE COMMENTS; Start 12/14/18 at 09:45 Piperacillin Sod/ Tazobactam Sod 3.375 gm/Sodium Chloride 50 ml @ 100 mls/hr Q6HRS IV Last administered on 12/15/18at 11:11; Start 12/14/18 at 12:00 Lactobacillus Rhamnosus (Culturelle) 1 cap BID PO Last administered on 12/15/18at 11:11; Start 12/14/18 at 21:00 Oxycodone/ Acetaminophen (Percocet 5/325) 1 tab PRN Q4HRS PRN PO PAIN Last administered on 12/15/18at 11:11; Start 12/14/18 at 10:00 Pantoprazole Sodium (Protonix) 40 mg DAILYAC PO Last administered on 12/15/18at 07:56; Start 12/14/18 at 19:00 Calcium Carbonate/ Glycine (Tums) 500 mg PRN AFTMEALHC PRN PO INDIGESTION; Start 12/14/18 at 19:00 Morphine Sulfate (Morphine Sulfate) 4 mg PRN Q2HR PRN IV PAIN Last administered on 12/15/18at 04:09; Start 12/14/18 at 19:15 Ondansetron HCl (Zofran) 4 mg PRN Q8HRS PRN IV NAUSEA/VOMITING; Start 12/14/18 at 19:15; Stop 12/14/18 at 19:21; Status DC Ondansetron HCl (Zofran) 4 mg PRN Q6HRS PRN IV NAUSEA/VOMITING 1ST CHOICE; Sta rt 12/15/18 at 05:45 Vitals/I & O Vital Sign - Last 24 Hours 12/14/18 12/14/18 12/14/18 12/14/18 14:11 15:00 16:32 18:13 Temp 98.8 98.8 Pulse 78 Resp 18 B/P (MAP) 104/56 (72) Pulse Ox 96 O2 Delivery Room Air Room Air Room Air Room Air 12/14/18 12/14/18 12/14/18 12/14/18 19:00 19:00 20:39 22:31 Temp 97.9 97.9 Pulse 60 Resp 18 16 B/P (MAP) 101/50 (67) Pulse Ox 96 96 96 O2 Delivery Room Air Room Air Room Air Room Air 12/14/18 12/14/18 12/15/18 12/15/18 23:00 23:51 03:00 03:36 Temp 99.2 98.4 99.2 98.4 Pulse 57 58 Resp 18 16 16 16 B/P (MAP) 109/59 (76) 106/51 (69) Pulse Ox 98 98 94 94 O2 Delivery Room Air Room Air Room Air Room Air 12/15/18 12/15/18 12/15/18 12/15/18 04:09 04:33 04:33 07:00 Temp 98.3 98.3 Pulse 60 Resp 16 16 16 18 B/P (MAP) 110/54 (72) Pulse Ox 94 94 94 98 O2 Delivery Room Air Room Air Room Air Room Air 12/15/18 12/15/18 11:00 11:11 Temp 98.6 98.6 Pulse 59 Resp 18 20 B/P (MAP) 117/52 (73) Pulse Ox 98 O2 Delivery Room Air Room Air Intake and Output 12/14/18 12/14/18 12/15/18 15:00 23:00 07:00 Intake Total 200 ml 50 ml 1650 ml Output Total 400 ml 200 ml Balance 200 ml -350 ml 1450 ml ISAIAH GARCIA MD Dec 15, 2018 12:29
[2018-12-15] MEDS ORDERED: POTASSIUM CHLORIDE 20 MEQ TABLET.ER. PO ONE (12:30)
[2018-12-15] MEDS ORDERED: PHENAZOPYRIDINE 200 MG TABLET. PO ONE (12:30)
[2018-12-15] MEDS ORDERED: POLYETHYLENE GLYCOL 3350 17 GM PACKET. PO PRN (14:00)
[2018-12-15] MEDS ORDERED: POLYETHYLENE GLYCOL 3350 17 GM PACKET. PO ONE (14:00)
[2018-12-15 15:00] VITALS: BP 117/58
[2018-12-15 19:00] VITALS: BP 125/72
[2018-12-15] MEDS: PHENAZOPYRIDINE 200 MG TABLET. PO SCH (20:56)
[2018-12-15] MEDS: TAMSULOSIN 0.4 MG CAP.ER.24H. PO SCH (21:00)
[2018-12-15 23:00] VITALS: BP 123/63
[2018-12-16] MEDS: IV NORMAL SALINE 1000ML BAG 1,000 ML IV SCH ×3 (01:56→12:20)
[2018-12-16] MEDS: oxyCODONE/APAP 5/325 1 TAB TABLET PO PRN ×2 (01:57→09:11)
[2018-12-16 02:39] VITALS: BP 124/67
[2018-12-16] MEDS: PIPERACILLIN/TAZOBACTAM 3.375 GM in IV NORMAL SALINE 50ML 50 ML IV SCH ×2 (05:06→12:19)
[2018-12-16] MEDS: PANTOPRAZOLE 40 MG TABLET.DR. PO SCH (05:07)
[2018-12-16 07:00] VITALS: BP 118/63
[2018-12-16] MEDS: LACTOBACILLUS RHAMNOSUS GG 1 CAPSULE. PO SCH (08:36)
[2018-12-16] MEDS: PHENAZOPYRIDINE 200 MG TABLET. PO SCH (08:36)
[2018-12-16] MEDS ORDERED: DOCUSATE SODIUM 100 MG CAPSULE. PO SCH (09:00)
--- NOTE | 2018-12-16 09:22 | PDOC ---
SUBJECTIVE Subjective c/o increased pelvic pain this morning during/after BM. States pain well c ontrolled with medication OBJECTIVE Objective Physical Exam: General appearance: Alert and Oriented Head: Normocephalic, without obvious abnormality Eyes: conjunctivae/corneas clear. PERRL, EOM's intact. Fundi benign Back: negative Lungs: regular respirations, nonlabored breathing Pelvic: deferred Vital Signs Vital Signs Date Time Temp Pulse Resp B/P (MAP) Pulse Ox O2 Delivery O2 Flow Rate FiO2 12/16/18 07:00 98.2 48 16 118/63 (81) 95 Room Air 98.2 12/16/18 02:39 98.1 54 18 124/67 (86) 96 Room Air 98.1 12/16/18 01:57 18 97 Room Air 12/15/18 23:00 99.0 80 20 123/63 (83) 97 Room Air 99.0 12/15/18 22:00 18 96 Room Air 12/15/18 22:00 18 96 Room Air 12/15/18 21:31 18 96 Room Air 12/15/18 21:02 18 96 Room Air 12/15/18 20:00 Room Air 12/15/18 19:00 98.8 63 20 125/72 (89) 96 Room Air 98.8 12/15/18 16:17 18 Room Air 12/15/18 15:00 99.3 53 18 117/58 (77) 98 Room Air 99.3 12/15/18 14:36 26 Room Air 12/15/18 13:09 16 Room Air 12/15/18 11:11 20 Room Air 12/15/18 11:00 98.6 59 18 117/52 (73) 98 Room Air 98.6 I & O Intake and Output 12/16/18 06:59 Intake Total 2740 ml Output Total 1800 ml Balance 940 ml Intake Oral 1640 ml IV Total 1100 ml Output Urine Total 1800 ml # Bowel Movements 1 PHYSICAL EXAM Physical Exam Physical Exam: General appearance: Alert and Oriented Head: Normocephalic, without obvious abnormality Eyes: conjunctivae/corneas clear. PERRL, EOM's intact. Fundi benign Back: negative Lungs: regular respirations, nonlabored breathing Pelvic: deferred ASSESSMENT/PLAN Assessment/Plan Acute prostatitis: still having some pain aggravated by BM. WBC trending down and afebrile. All questions answered A follow up appointment has been arranged for patient to see Dr. Gutierrez on 01/30/19 at 10 am. At that time, we will do a follow up PSA and re-evaluate symptoms. Appointment card and new patient paperwork given to patient. Problems: (1) Acute prostatitis COMMENT Lab Laboratory Tests Test 12/15/18 09:55 12/15/18 09:58 White Blood Count 14.6 x10^3/uL (4.0-11.0) Red Blood Count 4.04 x10^6/uL (4.30-5.70) Hemoglobin 12.3 g/dL (13.0-17.5) Hematocrit 35.7 % (39.0-53.0) Mean Corpuscular Volume 89 fL (79-100) Mean Corpuscular Hemoglobin 31 pg (25-35) Mean Corpuscular Hemoglobin Concent 35 g/dL (31-37) Red Cell Distribution Width 14.3 % (11.5-14.5) Platelet Count 98 x10^3/uL (140-400) Neutrophils (%) (Auto) 75 % (31-73) Lymphocytes (%) (Auto) 21 % (24-48) Monocytes (%) (Auto) 3 % (0-9) Eosinophils (%) (Auto) 1 % (0-3) Basophils (%) (Auto) 0 % (0-3) Neutrophils # (Auto) 10.9 x10^3/uL (1.8-7.7) Lymphocytes # (Auto) 3.1 x10^3/uL (1.0-4.8) Monocytes # (Auto) 0.4 x10^3/uL (0.0-1.1) Eosinophils # (Auto) 0.1 x10^3/uL (0.0-0.7) Basophils # (Auto) 0.1 x10^3/uL (0.0-0.2) Sodium Level 136 mmol/L (136-145) Potassium Level 3.4 mmol/L (3.5-5.1) Chloride Level 105 mmol/L (98-107) Carbon Dioxide Level 25 mmol/L (21-32) Anion Gap 6 (6-14) Blood Urea Nitrogen 16 mg/dL (8-26) Creatinine 1.1 mg/dL (0.7-1.3) Estimated GFR (Cockcroft-Gault) 80.5 Glucose Level 139 mg/dL (70-99) Calcium Level 8.1 mg/dL (8.5-10.1) Imaging IMPRESSION: 1. Mild heterogenous appearance of the prostate which is mildly enlarged. This can be seen in setting prostatitis. Recommend correlation with PSA. 2. Several retroperitoneal and pelvic lymph nodes as described above which are nonspecific may be reactive to the above-mentioned process. ARIADNA RODRIGUEZ [employer] Dec 16, 2018 09:22
--- NOTE | 2018-12-16 09:33 | NUR ---
0800 IV fluids not hung pervious bag still running
--- NOTE | 2018-12-16 10:46 | PDOC ---
PROGRESS NOTES Chief Complaint Chief Complaint discharge dx sepsis prostatitis, acute UTI BPH, symptomatic Hypomagnesemia nausea and vomiting resolved d/c planning 32 min History of Present Illness History of Present Illness no fever zosyn, blood cx neg, urine cx pending very poor Po intake, a lot of pain with urination Urology consult following, appreciate, flomax A follow up appointment has been arranged for patient to see Dr. Gutierrez on 01/30/19 at 10 am Vitals Vitals Vital Signs Date Time Temp Pulse Resp B/P (MAP) Pulse Ox O2 Delivery O2 Flow Rate FiO2 12/16/18 07:00 98.2 48 16 118/63 (81) 95 Room Air 98.2 Physical Exam General: Alert, Oriented X3, Cooperative, No acute distress, mild distress Heart: Regular rate, Normal S1, Normal S2, No murmurs Lungs: Clear Abdomen: Normal bowel sounds, Soft, No tenderness, No hepatosplenomegaly, No masses Extremities: No clubbing, No cyanosis, No edema, Normal pulses, No tenderness/swelling Skin: No rashes, No breakdown, No significant lesion Assessment and Plan Assessmemt and Plan Problems Medical Problems: (1) Acute prostatitis Status: Acute Comment Review of Relevant I have reviewed the following items dionisio (where applicable) has been applied. Labs Laboratory Tests Test 12/15/18 09:55 12/15/18 09:58 White Blood Count 14.6 x10^3/uL (4.0-11.0) Red Blood Count 4.04 x10^6/uL (4.30-5.70) Hemoglobin 12.3 g/dL (13.0-17.5) Hematocrit 35.7 % (39.0-53.0) Mean Corpuscular Volume 89 fL (79-100) Mean Corpuscular Hemoglobin 31 pg (25-35) Mean Corpuscular Hemoglobin Concent 35 g/dL (31-37) Red Cell Distribution Width 14.3 % (11.5-14.5) Platelet Count 98 x10^3/uL (140-400) Neutrophils (%) (Auto) 75 % (31-73) Lymphocytes (%) (Auto) 21 % (24-48) Monocytes (%) (Auto) 3 % (0-9) Eosinophils (%) (Auto) 1 % (0-3) Basophils (%) (Auto) 0 % (0-3) Neutrophils # (Auto) 10.9 x10^3/uL (1.8-7.7) Lymphocytes # (Auto) 3.1 x10^3/uL (1.0-4.8) Monocytes # (Auto) 0.4 x10^3/uL (0.0-1.1) Eosinophils # (Auto) 0.1 x10^3/uL (0.0-0.7) Basophils # (Auto) 0.1 x10^3/uL (0.0-0.2) Sodium Level 136 mmol/L (136-145) Potassium Level 3.4 mmol/L (3.5-5.1) Chloride Level 105 mmol/L (98-107) Carbon Dioxide Level 25 mmol/L (21-32) Anion Gap 6 (6-14) Blood Urea Nitrogen 16 mg/dL (8-26) Creatinine 1.1 mg/dL (0.7-1.3) Estimated GFR (Cockcroft-Gault) 80.5 Glucose Level 139 mg/dL (70-99) Calcium Level 8.1 mg/dL (8.5-10.1) Microbiology 12/14/18 Blood Culture - Preliminary, Resulted NO GROWTH AFTER 2 DAYS Medications Current Medications Famotidine (Pepcid Vial) 20 mg 1X ONCE IVP Last administered on 12/13/18at 17:32; Start 12/13/18 at 17:00; Stop 12/13/18 at 17:28; Status DC Ondansetron HCl (Zofran) 4 mg 1X ONCE IV Last administered on 12/13/18at 17:32; Start 12/13/18 at 17:00; Stop 12/13/18 at 17:28; Status DC Sodium Chloride 1,000 ml @ 1,000 mls/hr 1X ONCE IV Last administered on 12/13/18at 17:32; Start 12/13/18 at 17:00; Stop 12/13/18 at 17:59; Status DC Iohexol (Omnipaque 300 Mg/ml) 75 ml 1X ONCE IV Last administered on 12/13/18at 19:05; Start 12/13/18 at 19:00; Stop 12/13/18 at 19:01; Status DC Info (CONTRAST GIVEN -- Rx MONITORING) 1 each PRN DAILY PRN MC SEE COMMENTS; Start 12/13/18 at 19:00; Stop 12/15/18 at 18:59; Status DC Ciprofloxacin/ Dextrose 200 ml @ 200 mls/hr 1X ONCE IV Last administered on 12/13/18at 20:02; Start 12/13/18 at 19:45; Stop 12/13/18 at 20:44; Status DC Morphine Sulfate (Morphine Sulfate) 5 mg 1X ONCE IV Last administered on at 20:16; Start 12/13/18 at 20:15; Stop 12/13/18 at 20:16; Status DC Ciprofloxacin/ Dextrose 200 ml @ 200 mls/hr Q12HR IV Last administered on 12/14/18at 08:05; Start 12/14/18 at 09:00; Stop 12/14/18 at 09:32; Status DC Magnesium Sulfate/ Dextrose 100 ml @ 100 mls/hr 1X ONCE IV Last administered on 12/13/18at 23:40; Start 12/13/18 at 20:15; Stop 12/13/18 at 21:14; Status DC Sodium Chloride 1,000 ml @ 100 mls/hr Q10H IV Last administered on 12/16/18at 01:57; Start 12/13/18 at 20:15 Zolpidem Tartrate (Ambien) 5 mg PRN QHS PRN PO INSOMNIA; Start 12/13/18 at 20:30 Ondansetron HCl (Zofran) 4 mg PRN Q8HRS PRN IV NAUSEA/VOMITING Last administered on 12/14/18at 09:43; Start 12/13/18 at 20:30; Stop 12/14/18 at 20:29; Status DC Morphine Sulfate (Morphine Sulfate) 4 mg PRN Q2HR PRN IV PAIN Last administered on 12/14/18at 08:15; Start 12/13/18 at 20:30; Stop 12/14/18 at 20:29; Status DC Acetaminophen (Tylenol) 650 mg PRN Q4HRS PRN PO FEVER Last administered on 12/14/18at 08:05; Start 12/13/18 at 20:30; Stop 12/14/18 at 20:29; Status DC Sodium Chloride 1,000 ml @ 125 mls/hr 1X ONCE IV ; Start 12/13/18 at 20:30; Stop 12/14/18 at 04:29; Status DC Tamsulosin HCl (Flomax) 0.4 mg QHS PO Last administered on 12/15/18at 21:02; Start 12/13/18 at 22:00 Sodium Chloride 1,000 ml @ 0 mls/hr 1X ONCE IV Last administered on 12/14/18at 05:48; Start 12/14/18 at 06:00; Stop 12/14/18 at 07:00; Status DC Piperacillin Sod/ Tazobactam Sod (Zosyn Per Pharmacy) 1 each PRN DAILY PRN MC SEE COMMENTS; Start 12/14/18 at 09:45 Piperacillin Sod/ Tazobactam Sod 3.375 gm/Sodium Chloride 50 ml @ 100 mls/hr Q6HRS IV Last administered on 12/16/18at 05:07; Start 12/14/18 at 12:00 Lactobacillus Rhamnosus (Culturelle) 1 cap BID PO Last administered on 12/16/18at 08:36; Start 12/14/18 at 21:00 Oxycodone/ Acetaminophen (Percocet 5/325) 1 tab PRN Q4HRS PRN PO PAIN Last administered on 12/16/18at 09:11; Start 12/14/18 at 10:00 Pantoprazole Sodium (Protonix) 40 mg DAILYAC PO Last administered on 12/16/18at 05:07; Start 12/14/18 at 19:00 Calcium Carbonate/ Glycine (Tums) 500 mg PRN AFTMEALHC PRN PO INDIGESTION; Start 12/14/18 at 19:00 Morphine Sulfate (Morphine Sulfate) 4 mg PRN Q2HR PRN IV PAIN Last administered on 12/15/18at 21:31; Start 12/14/18 at 19:15 Ondansetron HCl (Zofran) 4 mg PRN Q8HRS PRN IV NAUSEA/VOMITING; Start 12/14/18 at 19:15; Stop 12/14/18 at 19:21; Status DC Ondansetron HCl (Zofran) 4 mg PRN Q6HRS PRN IV NAUSEA/VOMITING 1ST CHOICE; Start 12/15/18 at 05:45 Phenazopyridine HCl (Pyridium) 200 mg 1X ONCE PO Last administered on 12/15/18 13:00; Start 12/15/18 at 12:30; Stop 12/15/18 at 12:31; Status DC Phenazopyridine HCl (Pyridium) 200 mg BID PO Last administered on 12/16/18 08:36; Start 12/15/18 at 21:00; Stop 12/17/18 at 10:00 Potassium Chloride (Klor-Con) 40 meq 1X ONCE PO Last administered on 12/15/18 13:00; Start 12/15/18 at 12:30; Stop 12/15/18 at 12:31; Status DC Docusate Sodium (Colace) 100 mg DAILY PO ; Start 12/16/18 at 09:00 Polyethylene Glycol (miraLAX PACKET) 17 gm 1X ONCE PO Last administered on 12/15/18at 14:29; Start 12/15/18 at 14:00; Stop 12/15/18 at 14:02; Status DC Polyethylene Glycol (miraLAX PACKET) 17 gm PRN DAILY PRN PO CONSTIPATION; Start 12/15/18 at 14:00 Vitals/I & O Vital Sign - Last 24 Hours 12/15/18 12/15/18 12/15/18 12/15/18 11:00 11:11 13:09 14:36 Temp 98.6 98.6 Pulse 59 Resp 18 20 16 26 B/P (MAP) 117/52 (73) Pulse Ox 98 O2 Delivery Room Air Room Air Room Air Room Air 12/15/18 12/15/18 12/15/18 12/15/18 15:00 16:17 19:00 20:00 Temp 99.3 98.8 99.3 98.8 Pulse 53 63 Resp 18 18 20 B/P (MAP) 117/58 (77) 125/72 (89) Pulse Ox 98 96 O2 Delivery Room Air Room Air Room Air Room Air 12/15/18 12/15/18 12/15/18 12/15/18 21:02 21:31 22:00 22:00 Resp 18 18 18 18 Pulse Ox 96 96 96 96 O2 Delivery Room Air Room Air Room Air Room Air 12/15/18 12/16/18 12/16/18 12/16/18 23:00 01:57 02:39 07:00 Temp 99.0 98.1 98.2 99.0 98.1 98.2 Pulse 80 54 48 Resp 20 18 18 16 B/P (MAP) 123/63 (83) 124/67 (86) 118/63 (81) Pulse Ox 97 97 96 95 O2 Delivery Room Air Room Air Room Air Room Air Intake and Output 12/15/18 12/15/18 12/16/18 15:00 23:00 07:00 Intake Total 120 ml 850 ml 1770 ml Output Total 700 ml 200 ml 900 ml Balance -580 ml 650 ml 870 ml VINCENT HESS MD Dec 16, 2018 10:46
[2018-12-16 11:00] VITALS: BP_SYST 126; BP_SYST 139; BP_DIAS 70; BP_DIAS 83
--- NOTE | 2018-12-16 12:22 | NUR ---
SS following for discharge planning. SS reviewed pt chart. Pt is from home with spouse and is currently on room air. No discharge needs noted at this time. SS will continue to follow for discharge planning.
--- NOTE | 2018-12-16 12:54 | PDOC3 ---
Discharge Summary Date of Admission: Dec 13, 2018 Date of Discharge: Dec 16, 2018 Follow-Up: 3-5 days Admitting Diagnosis comment: discharge dx sepsis prostatitis, acute UTI BPH, symptomatic Hypomagnesemia nausea and vomiting resolved d/c planning 32 min History of Present Illness History of Present Illness no fever blood cx neg, urine cx pending very poor Po intake, less pain with urination Urology consult following, appreciate, flomax A follow up appointment has been arranged for patient to see Dr. Gutierrez on 01/30/19 at 10 am Vitals Vitals Vital Signs Date Time Temp Pulse Resp B/P (MAP) Pulse Ox O2 Delivery O2 Flow Rate FiO2 12/16/18 07:00 98.2 48 16 118/63 (81) 95 Room Air 98.2 Physical Exam General: Alert, Oriented X3, Cooperative, No acute distress, mild distress Heart: Regular rate, Normal S1, Normal S2, No murmurs Lungs: Clear Abdomen: Normal bowel sounds, Soft, No tenderness, No hepatosplenomegaly, No masses Extremities: No clubbing, No cyanosis, No edema, Normal pulses, No tenderness/swelling Skin: No rashes, No breakdown, No significant lesion FINAL DIAGNOSIS Problems Medical Problems: (1) Acute prostatitis Status: Acute Brief Hospital Course Mr. Viveros is a 68 old [sex] who presented with [ acute prostatitis, sepsis] CONDITION AT DISCHARGE: Improved Discharge Medications Current Medications Famotidine (Pepcid Vial) 20 mg 1X ONCE IVP Last administered on 12/13/18at 17:32; Start 12/13/18 at 17:00; Stop 12/13/18 at 17:28; Status DC Ondansetron HCl (Zofran) 4 mg 1X ONCE IV Last administered on 12/13/18at 17:32; Start 12/13/18 at 17:00; Stop 12/13/18 at 17:28; Status DC Sodium Chloride 1,000 ml @ 1,000 mls/hr 1X ONCE IV Last administered on 12/13/18at 17:32; Start 12/13/18 at 17:00; Stop 12/13/18 at 17:59; Status DC Iohexol (Omnipaque 300 Mg/ml) 75 ml 1X ONCE IV Last administered on 12/13/18at 19:05; Start 12/13/18 at 19:00; Stop 12/13/18 at 19:01; Status DC Info (CONTRAST GIVEN -- Rx MONITORING) 1 each PRN DAILY PRN MC SEE COMMENTS; Start 12/13/18 at 19:00; Stop 12/15/18 at 18:59; Status DC Ciprofloxacin/ Dextrose 200 ml @ 200 mls/hr 1X ONCE IV Last administered on at 20:02; Start 12/13/18 at 19:45; Stop 12/13/18 at 20:44; Status DC Morphine Sulfate (Morphine Sulfate) 5 mg 1X ONCE IV Last administered on 12/13/18at 20:16; Start 12/13/18 at 20:15; Stop 12/13/18 at 20:16; Status DC Ciprofloxacin/ Dextrose 200 ml @ 200 mls/hr Q12HR IV Last administered on 12/14/18 08:05; Start 12/14/18 at 09:00; Stop 12/14/18 at 09:32; Status DC Magnesium Sulfate/ Dextrose 100 ml @ 100 mls/hr 1X ONCE IV Last administered on 12/13/18at 23:40; Start 12/13/18 at 20:15; Stop 12/13/18 at 21:14; Status DC Sodium Chloride 1,000 ml @ 100 mls/hr Q10H IV Last administered on 12/16/18at 12:20; Start 12/13/18 at 20:15 Zolpidem Tartrate (Ambien) 5 mg PRN QHS PRN PO INSOMNIA; Start 12/13/18 at 20:30 Ondansetron HCl (Zofran) 4 mg PRN Q8HRS PRN IV NAUSEA/VOMITING Last administered on 12/14/18at 09:43; Start 12/13/18 at 20:30; Stop 12/14/18 at 20:29; Status DC Morphine Sulfate (Morphine Sulfate) 4 mg PRN Q2HR PRN IV PAIN Last administered on 12/14/18at 08:15; Start 12/13/18 at 20:30; Stop 12/14/18 at 20:29; Status DC Acetaminophen (Tylenol) 650 mg PRN Q4HRS PRN PO FEVER Last administered on 12/14/18at 08:05; Start 12/13/18 at 20:30; Stop 12/14/18 at 20:29; Status DC Sodium Chloride 1,000 ml @ 125 mls/hr 1X ONCE IV ; Start 12/13/18 at 20:30; Stop 12/14/18 at 04:29; Status DC Tamsulosin HCl (Flomax) 0.4 mg QHS PO Last administered on 12/15/18at 21:02; Start 12/13/18 at 22:00 Sodium Chloride 1,000 ml @ 0 mls/hr 1X ONCE IV Last administered on 12/14/18at 05:48; Start 12/14/18 at 06:00; Stop 12/14/18 at 07:00; Status DC Piperacillin Sod/ Tazobactam Sod (Zosyn Per Pharmacy) 1 each PRN DAILY PRN MC SEE COMMENTS; Start 12/14/18 at 09:45 Piperacillin Sod/ Tazobactam Sod 3.375 gm/Sodium Chloride 50 ml @ 100 mls/hr Q6HRS IV Last administered on 12/16/18at 12:20; Start 12/14/18 at 12:00 Lactobacillus Rhamnosus (Culturelle) 1 cap BID PO Last administered on 12/16/18at 08:36; Start 12/14/18 at 21:00 Oxycodone/ Acetaminophen (Percocet 5/325) 1 tab PRN Q4HRS PRN PO PAIN Last administered on 12/16/18at 09:11; Start 12/14/18 at 10:00 Pantoprazole Sodium (Protonix) 40 mg DAILYAC PO Last administered on 12/16/18at 05:07; Start 12/14/18 at 19:00 Calcium Carbonate/ Glycine (Tums) 500 mg PRN AFTMEALHC PRN PO INDIGESTION; Start 12/14/18 at 19:00 Morphine Sulfate (Morphine Sulfate) 4 mg PRN Q2HR PRN IV PAIN Last administered on 12/15/18at 21:31; Start 12/14/18 at 19:15 Ondansetron HCl (Zofran) 4 mg PRN Q8HRS PRN IV NAUSEA/VOMITING; Start 12/14/18 at 19:15; Stop 12/14/18 at 19:21; Status DC Ondansetron HCl (Zofran) 4 mg PRN Q6HRS PRN IV NAUSEA/VOMITING 1ST CHOICE; Start 12/15/18 at 05:45 Phenazopyridine HCl (Pyridium) 200 mg 1X ONCE PO Last administered on 12/15/18at 13:00; Start 12/15/18 at 12:30; Stop 12/15/18 at 12:31; Status DC Phenazopyridine HCl (Pyridium) 200 mg BID PO Last administered on 12/16/18at 08:36; Start 12/15/18 at 21:00; Stop 12/17/18 at 10:00 Potassium Chloride (Klor-Con) 40 meq 1X ONCE PO Last administered on 12/15/18at 13:00; Start 12/15/18 at 12:30; Stop 12/15/18 at 12:31; Status DC Docusate Sodium (Colace) 100 mg DAILY PO ; Start 12/16/18 at 09:00 Polyethylene Glycol (miraLAX PACKET) 17 gm 1X ONCE PO Last administered on 12/15/18at 14:29; Start 12/15/18 at 14:00; Stop 12/15/18 at 14:02; Status DC Polyethylene Glycol (miraLAX PACKET) 17 gm PRN DAILY PRN PO CONSTIPATION; Start 12/15/18 at 14:00 Vital Signs Vital Signs Date Time Temp Pulse Resp B/P (MAP) Pulse Ox O2 Delivery O2 Flow Rate FiO2 12/16/18 11:00 98.3 57 14 126/70 (88) 95 Room Air 98.3 Labs Laboratory Tests Test 12/15/18 09:55 12/15/18 09:58 White Blood Count 14.6 x10^3/uL (4.0-11.0) Red Blood Count 4.04 x10^6/uL (4.30-5.70) Hemoglobin 12.3 g/dL (13.0-17.5) Hematocrit 35.7 % (39.0-53.0) Mean Corpuscular Volume 89 fL (79-100) Mean Corpuscular Hemoglobin 31 pg (25-35) Mean Corpuscular Hemoglobin Concent 35 g/dL (31-37) Red Cell Distribution Width 14.3 % (11.5-14.5) Platelet Count 98 x10^3/uL (140-400) Neutrophils (%) (Auto) 75 % (31-73) Lymphocytes (%) (Auto) 21 % (24-48) Monocytes (%) (Auto) 3 % (0-9) Eosinophils (%) (Auto) 1 % (0-3) Basophils (%) (Auto) 0 % (0-3) Neutrophils # (Auto) 10.9 x10^3/uL (1.8-7.7) Lymphocytes # (Auto) 3.1 x10^3/uL (1.0-4.8) Monocytes # (Auto) 0.4 x10^3/uL (0.0-1.1) Eosinophils # (Auto) 0.1 x10^3/uL (0.0-0.7) Basophils # (Auto) 0.1 x10^3/uL (0.0-0.2) Sodium Level 136 mmol/L (136-145) Potassium Level 3.4 mmol/L (3.5-5.1) Chloride Level 105 mmol/L (98-107) Carbon Dioxide Level 25 mmol/L (21-32) Anion Gap 6 (6-14) Blood Urea Nitrogen 16 mg/dL (8-26) Creatinine 1.1 mg/dL (0.7-1.3) Estimated GFR (Cockcroft-Gault) 80.5 Glucose Level 139 mg/dL (70-99) Calcium Level 8.1 mg/dL (8.5-10.1) Allergies Allergies Coded Allergies Type Severity Reaction Last Updated Verified No Known Drug Allergies 12/13/18 No Disposition/Orders: D/C to Home Patient Instructions d/c planning 32 min VINCENT HESS MD Dec 16, 2018 12:54
[2018-12-16] MEDS ORDERED: TAMS0.4C97 PO (12:58)
[2018-12-16] MEDS ORDERED: LACT1CAP19 PO (12:58)
[2018-12-16] MEDS ORDERED: PHEN-444 PO (12:58)
[2018-12-16] MEDS ORDERED: POLY17PO28 PO (12:58)
[2018-12-16] MEDS ORDERED: DOCU-109 PO (12:58)
[2018-12-16] MEDS ORDERED: OXYC1TAB15 PO (12:58)
[2018-12-16] MEDS ORDERED: PANT40TA77 PO (12:58)
[2018-12-16] MEDS ORDERED: AMOX1TAB61 PO (12:58)
--- NOTE | 2018-12-16 13:03 | DISCH ---
DISCHARGE INSTRUCTIONS Condition on Discharge Condition on Discharge: Stable Activity After Discharge Activity Instructions for Disc: Activity as tolerated Lifting Instructions after Dis: No heavy lifting, No pulling or pushing Driving Instructions after Dis: Do not drive Diet after Discharge Diet after Discharge: Regular Checks after Discharge Checks after discharge: Check blood press - daily Contacting the DR. after DC Call your doctor for: If your condition worsens VINCENT HESS MD Dec 16, 2018 13:03
[2018-12-16] MEDS ORDERED: CIPR500T94 PO (13:11)
[2018-12-16] MEDS ORDERED: POTASSIUM CHLORIDE 20 MEQ TABLET.ER. PO ONE (13:15)
--- NOTE | 2018-12-16 14:06 | NUR ---
Discharge Note: SURJIT RITCHIE [place] Discharge instructions and discharge home medications reviewed with Patient and a copy given. All questions have been answered and understanding verbalized. The following instructions and handouts were given: PROSTATITIS Discontinued lines and drains: Peripheral IV intact. Patient discharged to Home or Self Care with Spouse via Ambulated
== END 2018-12-16 14:08 | disposition home or self-care (01) | DRG 872 ==
LOC: ER 16:20 → 5 NORTH 20:39
PROVIDERS: ADMIT Internal Medicine; ATTEND Internal Medicine
DX: A41.9 Sepsis, unspecified organism (principal); N39.0 Urinary tract infection, site not specified; N41.0 Acute prostatitis; N40.0 Benign prostatic hyperplasia without lower urinary tract symptoms; F12.90 Cannabis use, unspecified, uncomplicated; E83.42 Hypomagnesemia; K21.9 Gastro-esophageal reflux disease without esophagitis; Z80.42 Family history of malignant neoplasm of prostate; Z85.46 Personal history of malignant neoplasm of prostate
CPT/HCPCS: 36415; 74177; 80048; 80053; 80307; 81001; 82553; 83605; 83690; 83735; 83880; 84443; 84484; 85007; 85025; 85610; 87040; 93005; 96361; 96365; 96375; G0103; J0744; J2270; J2405; J2543; J3475; J3490; J7030; Q9967; 99285-25; G0378